=== PATIENT | male | born 1950 | race Caucasian/White ===

== ENCOUNTER 2018-01-09 11:19 | Outpatient (CLI) | payer BC, SELFPAY ==
[2018-01-09 15:57] LABS: Hemoglobin A1C 7.6 % (4.5-6.2)
== END 2018-01-09 11:39 ==
PROVIDERS: PCP Internal Medicine; Visit Provider Internal Medicine
DX: E11.65 Type 2 diabetes mellitus with hyperglycemia (principal)
CPT/HCPCS: 36415; 83036

== ENCOUNTER 2018-03-17 11:07 | Outpatient (CLI) | payer BC, SELFPAY ==
[2018-03-17 13:44] LABS: ESR 10 MM/HR (1-20)
[2018-03-17 13:46] LABS: Hemoglobin A1C 6.8 % (4.5-6.2)
[2018-03-17 15:45] LABS: Abs Immature Grans 0.02 k/cumm (0.0-0.09); Absolute Basophil Count 0.11 k/cumm (0.0-0.2); Absolute Eosinophil Count 0.46 k/cumm (0.0-0.7); Absolute Lymphocyte Count 2.77 k/cumm (1.2-3.4); Absolute Monocyte Count 0.98 k/cumm (0.11-0.7); Absolute Neutrophil Count 4.88 k/cumm (1.2-6.7); Basophils % 1.2; HCT 49.2 % (40.0-50.0); HGB 17.2 g/dL (13.5-17.5); Immature Grans % 0.2; Mean Corpuscular Hemoglobin 32.1 pg (27.0-33.0); Mean Corpuscular Volume 91.8 fL (80-95); Mean Platelet Volume 11.5 fL (8.0-11.0); Monocytes % 10.6; Platelet Count 229 x1000/uL (130-400); RBC 5.36 m/cumm (4.50-6.00); RBC Distribution Width 12.5 % (11.8-14.1); White Blood Cell Count 9.22 k/cumm (4.4-10.8)
== END 2018-03-17 11:27 ==
PROVIDERS: PCP Internal Medicine; Visit Provider Internal Medicine
DX: D72.829 Elevated white blood cell count, unspecified (principal); E11.9 Type 2 diabetes mellitus without complications; I10 Essential (primary) hypertension
CPT/HCPCS: 36415; 85027; 85652; 83036; 85025

== ENCOUNTER 2018-09-16 02:02 | Outpatient (CLI) | payer BC, SELFPAY ==
[2018-09-17 12:07] LABS: PSA, Screening 0.2 ng/ml (0-4.5)
== END 2018-09-16 02:22 ==
PROVIDERS: PCP Internal Medicine; Visit Provider Internal Medicine
DX: E11.9 Type 2 diabetes mellitus without complications (principal); Z12.5 Encounter for screening for malignant neoplasm of prostate
CPT/HCPCS: 36415; 84153; 83036

== ENCOUNTER 2018-12-24 07:22 | Outpatient (CLI) | payer BC, SELFPAY ==
[2018-12-24 10:53] LABS: Hemoglobin A1C 7.8 % (4.5-6.2)
== END 2018-12-24 07:42 ==
PROVIDERS: PCP Internal Medicine; Visit Provider Internal Medicine
DX: E11.9 Type 2 diabetes mellitus without complications (principal)
CPT/HCPCS: 36415; 83036

== ENCOUNTER 2019-10-01 22:27 | Outpatient (REF) | payer OTHER, SELFPAY ==
[2019-10-01 21:12] LABS: Hemoglobin A1C 9.1 % (3.8-5.6)
[2019-10-01 21:20] LABS: CREATININE 1.34 mg/dL (0.70-1.30); Estimated GFR 53.01 (mL/min/1.73m2); Potassium 4.5 mmol/L (3.5-5.1)
== END 2019-10-01 22:47 ==
LOC: LBN 22:27
PROVIDERS: PCP Nurse Practitioner; Visit Provider Nurse Practitioner
DX: I10 Essential (primary) hypertension (principal)
CPT/HCPCS: 82565; 83036; 84132

== ENCOUNTER 2019-12-11 07:44 | Day surgery (SDC) | payer OTHER, SELFPAY ==
[2019-12-11 08:04] VITALS: BP 139/96; PULSE 95; RESP 16; TEMP 36.5; O2SAT 96
[2019-12-11] MEDS: Lactated Ringers 1,000 ML 80 ML IV (08:31)
--- NOTE | 2019-12-11 08:36 | W.PM.DSUDISC ---
Discharge Plan Disposition Patient Disposition: HOME Condition: Good Discharge Details Reason For Visit: Colonoscopy Attending Provider: Mallika Hong Primary Care Provider: Halina Rivera Home Meds and New Rx's Prescriptions: Continued aspirin 81 mg tablet,delayed release (DR/EC) 81 mg PO DAILY RF: 0 Excedrin Extra Strength 1 EACH tablet 2 tab PO PRN RF: 0 glucosam-chond qb-sgzfcs-as ac 1 EACH capsule 2 ea PO DAILY RF: 0 CENTRUM SILVER TABLET 1 EACH tablet 1 ea PO DAILY RF: 0 (DME) lancets [OneTouch UltraSoft Lancets] 1 EACH misc 1 ea Miscellaneous DAILY Qty: 100 RF: 3 cyanocobalamin (vitamin B-12) [Vitamin B-12] 500 MCG tablet 500 mcg PO DAILY Qty: 90 RF: 0 metformin 1,000 mg tablet 1,000 mg PO BID Qty: 180 RF: 3 (DME) pen needle, diabetic [1st Tier Unifine Pentips] 32 gauge x 5/32 needle See Rx Instructions .ROUTE .MEDSUPPLY Qty: 90 RF: 4 (DME) OneTouch Ultra Blue Test Strip Strip See Rx Instructions .ROUTE .MEDSUPPLY Qty: 100 RF: 3 (DME) blood-glucose meter [OneTouch Ultra2 Meter] Kit See Rx Instructions .ROUTE .MEDSUPPLY Qty: 1 RF: 0 lisinopril 10 mg tablet 10 mg PO DAILY Qty: 90 RF: 3 hydrochlorothiazide 12.5 mg tablet 12.5 mg PO DAILY Qty: 90 RF: 3 Basaglar KwikPen U-100 Insulin 100 unit/mL (3 mL) insulin pen 40 unit SC DAILY RF: 0 Discharge Instructions Additional Instructions: Findings: Diverticulosis was present. Make sure to take in 30 grams of fiber daily. Follow up: Plan for colonoscopy in 7 years. Please call if you develop: fevers >101.5 Nausea or Vomiting Abdominal pain that is not transient DAY SURGERY UNIT POST COLONOSCOPY INSTRUCTIONS 1. Because there will be medication in your system for the next 24 hours, you may feel a little sleepy. Your coordination will be affected. Therefore: a. Do not drive or operate dangerous equipment for 24 hours. b. Do not drink alcohol beverages for 24 hours (not even beer). c. Plan to go home and rest for the day. 2. Generally there are no restrictions on your activity after a day or so has gone by, but you may feel a bit fatigued for a few days. 3 After you arrive home you may have a light meal and return to a normal diet as you can tolerate it without feeling sick to your stomach. 4. After surgery, you may feel pain or discomfort. This should be only transient, but if it persists please contact your doctor. 5. If there are any questions regarding the findings of your procedure, please feel free to contact your doctor. 6. If you are unable to contact your doctor with a problem, contact the hospital at [phone]. 7. Continue all your regular medications unless directed otherwise. I understand the above instructions and have no questions. Signature of Patient or Responsible Adult Escort Date/Time Name of Responsible Adult Escort Signature of Nurse Date/Time Activity:: Activity as Tolerated Diet:: As Tolerated Discharge Orders Discharge Orders: Discharge Order (Routine); Ordered 12/11/19 Ordered By: Mallika Hong DS: Diagnosis Discharge Diagnosis (1) Diverticulosis: Status: Acute
--- NOTE | 2019-12-11 08:37 | COLE_ITS ---
Date of service: 12/11/19 Time of Service: 09:24 Colonoscopy Report Date of procedure: 12/11/19 Pre-op diagnosis general: History of colon polyps Post-op diagnosis procedure note: other (Diverticulosis) Procedure: Colonoscopy Surgeon: Mallika Hong Anesthesia proc note operative: MAC Indications: This 69 year old man presents for colonoscopy. His last colonoscopy in 2012 showed a tubular adenoma Procedure Description: The patient was placed in the left Morel position. P ropofol was titrated to sedation. Digital rectal examination revealed no abnormalities. The scope was advanced to the cecum without difficulty. The ileocecal valve and appendiceal orifice were clearly identified. The prep was good. He was noted to have scattered diverticulosis throughout the colon including several pockets in the cecum. The scope was slowly withdrawn over the course of greater than 6 minutes with no other abnormalities seen in the ascending, transverse, descending, sigmoid colon or rectum including on retroflexed view. The patient tolerated the procedure well and was stable to recovery. Plan for routine colonoscopy in 7 years or sooner if symptoms indicate.
[2019-12-11 09:45] VITALS: BP 133/87; PULSE 87; RESP 16; TEMP 36.6; O2SAT 96
== END 2019-12-11 10:02 | disposition home or self-care (01) ==
PROVIDERS: PCP Nurse Practitioner; Visit Provider Surgery
PROC: 0DJD8ZZ Inspection of Lower Intestinal Tract, Via Natural or Artificial Opening Endoscopic (ICD-10-PCS; CPT 45378; principal; 2019-12-11 09:00)
DX: Z12.11 Encounter for screening for malignant neoplasm of colon (principal); Z86.010 Personal history of colon polyps; E11.9 Type 2 diabetes mellitus without complications; I10 Essential (primary) hypertension; E66.9 Obesity, unspecified; K57.30 Diverticulosis of large intestine without perforation or abscess without bleeding
CPT/HCPCS: 45378

== ENCOUNTER 2020-01-29 01:41 | Outpatient (CLI) | payer OTHER, SELFPAY ==
[2020-01-29 12:46] LABS: CREATININE 1.22 mg/dL (0.70-1.30); Estimated GFR 59.07 (mL/min/1.73m2); Potassium 5.2 mmol/L (3.5-5.1)
[2020-01-29 12:48] LABS: Hemoglobin A1C 7.7 % (<5.7)
== END 2020-01-29 02:01 ==
PROVIDERS: PCP Nurse Practitioner; Visit Provider Nurse Practitioner
DX: I10 Essential (primary) hypertension (principal); E11.65 Type 2 diabetes mellitus with hyperglycemia
CPT/HCPCS: 36415; 82565; 83036; 84132

== ENCOUNTER 2020-06-13 03:35 | Outpatient (CLI) | payer OTHER, SELFPAY ==
[2020-06-13 12:57] LABS: Hemoglobin A1C 7.7 % (<5.7)
== END 2020-06-13 03:36 | disposition home or self-care (01) ==
LOC: LOS 03:35
PROVIDERS: PCP Nurse Practitioner; Visit Provider Nurse Practitioner
DX: E11.65 Type 2 diabetes mellitus with hyperglycemia (principal)
CPT/HCPCS: 36415; 83036

== ENCOUNTER 2020-10-10 14:11 | Outpatient (CLI) | payer OTHER, SELFPAY ==
[2020-10-10 13:03] LABS: CREATININE 1.2 mg/dL (0.70-1.30); Calculated LDL 106 mg/dL (<100); Cholesterol 174 mg/dL (<200); HDL Cholesterol 55 mg/dL (40-60); Triglyceride 65 mg/dL (<150)
[2020-10-10 13:06] LABS: Hemoglobin A1C 8.1 % (<5.7)
[2020-10-10 22:19] LABS: PSA, Screening 0.2 ng/mL (0.0-4.5)
== END 2020-10-10 14:12 | disposition home or self-care (01) ==
LOC: LOS 14:12
PROVIDERS: PCP Nurse Practitioner; Visit Provider Nurse Practitioner
DX: I10 Essential (primary) hypertension (principal); E11.65 Type 2 diabetes mellitus with hyperglycemia; Z13.220 Encounter for screening for lipoid disorders; Z12.5 Encounter for screening for malignant neoplasm of prostate
CPT/HCPCS: 36415; 80061; 84153; 82565; 83036

== ENCOUNTER 2021-01-23 02:30 | Outpatient (CLI) | payer OTHER, SELFPAY ==
--- NOTE | 2021-01-23 14:00 | NS.NUTBLAN_ITS ---
Sai was referred to Medical Nutrition Therapy for Diabetes Self Management Education and weight management. He was accompanied by his . 255 lbs, 69 inches BMI 38. PMH: Dm2, HTN, obesity. Most recent A1C 7.5% (01/17/21) indicating good glycemic control. Dm meds: 1000 mg metformin BID, glargine 18 units AM, 100 units PM. Has gained 33 lbs in last 2 years since starting glargine. Lipids well controlled (10/10/20). Sees eye doc and podiatry. Walks 2 miles a couple times a week with . Typical meal plan includes toast and PB in AM, no lunch and big dinner. Snacks include corn chips, cookies, pretzels. Goal weight: 220 lbs. Check blood sugars twice daily- often having readings > 180 mg/dl in AM. Session today focused on how to best to follow lower carb diet with emphasis on complex carbs, lean protein and healthy fats. Provided meal plans and contact information. Sai will need to reduce glargine at night if following lower carb meal plan. Recommend 50 units at HS if blood sugars <100 mg/dl before dinner. Encouraged Sai to check blood sugars QID while decreasing carbohydrate intake and to reduce insulin to maintain ideal range of 70-180 mg/dl during day. High amounts of glargine related to weight gain. Recommend changing to Toujeo/Tresiba. Also, recommend consider using Jardiance (SGLT2i) and/or Trucility in order to reduce basal insulin to assist in desired weight loss. Plan: follow up 02/20/21 at 1 pm. Goal weight loss 10lbs/month to goal weight of 220 lbs.
== END 2021-01-23 02:31 | disposition home or self-care (01) ==
LOC: DS 02:30
PROVIDERS: PCP Nurse Practitioner; Visit Provider Dietitian, Registered
DX: E11.9 Type 2 diabetes mellitus without complications (principal); I10 Essential (primary) hypertension; E66.8 Other obesity; Z79.4 Long term (current) use of insulin; Z79.84 Long term (current) use of oral hypoglycemic drugs; Z68.38 Body mass index [BMI] 38.0-38.9, adult; Z71.3 Dietary counseling and surveillance
CPT/HCPCS: 97802

== ENCOUNTER → 2021-01-24 01:18 | Outpatient (CLI) | payer OTHER, SELFPAY ==
--- NOTE | 2021-01-24 06:30 | DI.RAD_ITS ---
Exam(s) XR KNEE RT 3V AP,LAT,KRISTI EXAM: XR KNEE RT 3V AP,LAT,KRISTI CLINICAL HISTORY: knee pain, M25.561. TECHNIQUE: 2D digital imaging was performed. COMPARISON: No exams were available for comparison FINDINGS: There is no evidence of fracture nor prominent joint effusion. However, there are significant osteoa rthritic degenerative changes with [id number] narrowing of the medial compartment and moderate dege nerative changes in the patellofemoral compartment. Milder degenerative changes in the lateral radha rtment. No osseous lesions. Vascular calcification is noted. IMPRESSION: Osteoarthritic degenerative changes, most prominent in the medial compartment. DATA REPOSITORY: RADIATION DOSE DELIVERED:
== END ==
PROVIDERS: PCP Nurse Practitioner; Visit Provider Nurse Practitioner
DX: M25.561 Pain in right knee (principal); M17.11 Unilateral primary osteoarthritis, right knee
CPT/HCPCS: 73562

== ENCOUNTER 2021-02-20 13:35 | Outpatient (CLI) | payer OTHER, SELFPAY ==
--- NOTE | 2021-02-20 13:00 | NS.NUTBLAN_ITS ---
Rubén returns for diabetes self management education (MNT). Wt: 255 lbs, no change in weight. DM meds have been changed to 20 units glargine AM, 60 units PM, 1000 mg metformin BID. Diet recall - breakfast sandwich, big dinner - home cooked Exercise- continues to walk 1-2 miles daily Session today focused on placing a Libre2 continuous glucose monitor with alarms for more feedback on meal selection as teaching tool for Rubén. Suspect CGM trial will provide Rubén with concrete data on how his meals affect his blood sugars. Rubén is interested in losing weight and reducing insulin administration. Current insulin intake is making it difficult for him to lose weight. Recommend lower dose of concentrated insulin such as Toujeo. Also, recommend Januvia or Jardiance, along with metformin for weight loss and healthy heart benefit. Follow up planned for 03/06/21 at 1 pm for CGM down load. Will fax results to PCP for evaluation.
== END 2021-02-20 13:36 | disposition home or self-care (01) ==
PROVIDERS: PCP Nurse Practitioner; Visit Provider Dietitian, Registered
DX: E11.9 Type 2 diabetes mellitus without complications (principal); Z79.4 Long term (current) use of insulin; Z71.3 Dietary counseling and surveillance
CPT/HCPCS: 97803

== ENCOUNTER 2021-03-06 01:56 | Outpatient (CLI) | payer OTHER, SELFPAY ==
--- NOTE | 2021-03-06 13:00 | NS.NUTBLAN_ITS ---
Rubén returns for Diabetes Self Management Education and data down load after wearing a Cesar 2 Continuous Glucose Monitor. Wt: 246 lbs (down 9 lbs in 30 days) DM meds: 20 u glargine AM, 40 u glargine PM, 1000 mg metformin BID, 10 mg Jardiance x 30 days, then increased to 25 mg/dl. Ambulatory Glucose Profile: 02/21/21-03/06/21 Average Blood Sugars: 121 mg/dl Glucose Variability: 23% (goal <35%) Time In Range (70-180 mg/dl): 96% (goal > 70%) High BS (180-250 mg/dl): 4% (goal <25%) No BS > 250 mg/dl No hypoglycemia Rubén has had excellent glycemic management in current Dm meds and diet/lifestyle changes. Weight loss encouraging. May consider reducing PM glargine dose to 30 units and assess glycemic response. . Session today focused on meal time planning and role for exercise, avoiding hypo/hyper glycemia. Recommend continued use of CGM as provides daily feed back on meal choices and essential while titrating insulin doses. Will need script for Cesar 2 reader and cesar 2 sensors- as with commercial insurance, will be available at pharmacy. Follow up appt. 04/03/21 at 1 pm.
== END 2021-03-06 01:57 | disposition home or self-care (01) ==
LOC: DS 01:57
PROVIDERS: PCP Nurse Practitioner; Visit Provider Dietitian, Registered
DX: E11.9 Type 2 diabetes mellitus without complications (principal); Z71.3 Dietary counseling and surveillance
CPT/HCPCS: 97803

== ENCOUNTER 2021-04-03 13:33 | Outpatient (CLI) | payer OTHER, SELFPAY ==
--- NOTE | 2021-04-03 13:00 | NS.NUTBLAN_ITS ---
Sai returns for Medical Nutrition Therapy for diabetes self management education and Cesar 2 CGM data down load. Wt: 237 lbs, down 23 lbs in last 3 months, BMI 35 Dm meds: 20 lantus AM and 30 lantus PM, 1000 mg metformin BID, 25 mg Jardiance qd Diet Recall: ritz crackers with ham, breakfast sandwich, pot roast, 1/2 cup potatoes, veggies Exercise: 2 mile walk- 3 times last week Ambulatory Glucose Profile: Dates: 03/21/21-04/03/21 Actual Goal Average Blood Sugar: 126 mg/dl 80-120 mg/dl Glucose Management Indicato: 6.3% < 7% Glucose Variability: 21.4% < 36% Time In Range (70-180 mg/dl) 96% >70% Below 70 mg/dl: 1% < 4% Below 54 mg/dl : 0% < 1% Above 180 mg/dl: 3% < 25% Above 250 mg/dl: 0% < 5% Excellent glycemic control with significant reduction in long acting insulin and significant weight loss. Sai's goal weight is 225-230 lbs. Reports making small changes in his diet in response to alarms on CGM, no hypoglycemia reported. Asked Sai to talk to his PCP about lowering long acting insulin some more to aid in continued weight loss. Session today focused on Sai's accomplishments and improved health. Sai reports feeling very well and very happy with results after using the CGM. Has prescription for replacement sensors ( 2 per month). No follow up scheduled at this time. Will reach out in future prn. .
== END 2021-04-03 13:34 | disposition home or self-care (01) ==
LOC: DS 13:33
PROVIDERS: PCP Nurse Practitioner; Visit Provider Dietitian, Registered
DX: E11.9 Type 2 diabetes mellitus without complications (principal); Z79.4 Long term (current) use of insulin; Z71.3 Dietary counseling and surveillance
CPT/HCPCS: 97803

== ENCOUNTER 2021-10-26 02:59 | Outpatient (CLI) | payer MEDICARE, OTHER, SELFPAY ==
[2021-10-26 12:48] LABS: Anion Gap 10.4 mmol/L (3-11); BUN 24 mg/dL (7-18); CO2 24.6 mmol/L (21.0-32.0); CREATININE 1.3 mg/dL (0.70-1.30); Calcium 9.5 mg/dL (8.5-10.1); Calculated LDL 76 mg/dL (<100); Chloride 104 mmol/L (98-107); Cholesterol 151 mg/dL (<200); Estimated GFR 54.57 (mL/min/1.73m2); Glucose 147 mg/dL (74-106); HDL Cholesterol 61 mg/dL (40-60); Potassium 4.7 mmol/L (3.5-5.1); Sodium 139 mmol/L (136-145); Triglyceride 73 mg/dL (<150)
== END 2021-10-26 03:00 | disposition home or self-care (01) ==
LOC: LOS 03:01
PROVIDERS: PCP Nurse Practitioner; Visit Provider Nurse Practitioner
DX: E11.65 Type 2 diabetes mellitus with hyperglycemia (principal); I10 Essential (primary) hypertension
CPT/HCPCS: 36415; 80048; 80061

== ENCOUNTER 2022-06-11 17:19 | Outpatient (CLI) | payer MEDICARE, SELFPAY ==
--- NOTE | 2022-06-11 17:15 | DI.RAD_ITS ---
Exam(s) XR ABDOMEN FLAT UPRIGHT EXAM: XR ABDOMEN FLAT UPRIGHT CLINICAL HISTORY: constipation, for 2 weeks. TECHNIQUE: 2D digital imaging was performed. COMPARISON: CT RENAL COLIC WO CONTRAST from 06/14/2017 FINDINGS: Two views: No evidence of obvious bowel obstruction or free air. The stomach is fluid-filled. Small left-sided calcifications seen in left kidney. No obvious radiopaque calculi seen over the right kidney. No o bvious radiopaque calculi seen along the course of the ureters. Multilevel degenerative changes in t he lumbar spine noted. IMPRESSION: Nephrocalcinosis. I note that this patient had a prior CT scan June 2017 which revealed an obstruct ing calculus in the right ureter. At that time CT scan also revealed calculi in a somewhat atrophic left kidney. DATA REPOSITORY: RADIATION DOSE DELIVERED:
--- NOTE | 2022-06-11 18:04 | DI.VRAD_ITS ---
PROCEDURE INFORMATION: Exam: XR Abdomen Exam date and time: 06/11/2022 5:39 PM Age: 71 years old Clinical indication: Other: Constipation, for 2 weeks TECHNIQUE: Imaging protocol: Radiologic exam of the abdomen. Views: 2 Views. Upright and supine views. COMPARISON: CT RENAL COLIC WO CONTRAST 06/14/2017 2:31 PM FINDINGS: Lungs: The visualized lung bases are clear. Heart/Mediastinum: Heart size normal. Gastrointestinal tract: There is no evidence of constipation. Stool volume is very small and there is a relative absence of bowel gas throughout the small bowel with only small amounts of bowel gas demonstrated in the distribution of the cecum, with largely contracted colon otherwise. The stomach shadow is fairly prominent and fluid-filled with fluid level in the fundus. The pattern raises concern for possible gastric outlet obstruction. Recommend CT with oral contrast or fluoroscopic contrast swallow. No evidence of pneumatosis or portal gas. Intraperitoneal space: No free air is evident. Organs: No gross soft tissue masses. Large right renal shadow consistent with compensatory enlargement of the right kidney secondary to left renal cortical atrophy as noted on prior CT 06/14/2017. Bones/joints: No acute osseous abnormalities. Moderate lumbar spondylosis with slight rightward convexity mid lumbar scoliotic curvature. Other findings: No pathological calcifications. IMPRESSION: 1. No evidence of constipation. 2. The stomach is moderately distended with fluid content with relative absence of bowel contents in the small and large bowel, concerning for possible gastric outlet obstruction. Recommend CT with oral contrast or fluoroscopic contrast swallow for further assessment. 3. Compensatory enlargement of the right kidney due to left renal cortical atrophy. 4. These findings initiated a critical results reporting process. An addendum will be issued at the time of clinician notification. Dictated and Authenticated by: Nixon Cohn MD. Ordering:ES Rich MD
--- NOTE | 2022-06-11 18:28 | DI.VRAD_ITS ---
Addendum created by Nixon Cohn MD on 06/11/2022 6:28:17 PM EST: Addendum: THIS REPORT CONTAINS FINDINGS THAT MAY BE CRITICAL TO PATIENT CARE. Telephone discussion between operations clerical support Vashti Webb and Layla Henry at 6:28 PM EST on 06/11/2022 confirmed that they had read the report with no further questions, and declined conference call. The findings were acknowledged and understood. Initial report created on 06/11/2022 6:04:03 PM EST: PROCEDURE INFORMATION: Exam: XR Abdomen Exam date and time: 06/11/2022 5:39 PM Age: 71 years old Clinical indication: Other: Constipation, for 2 weeks TECHNIQUE: Imaging protocol: Radiologic exam of the abdomen. Views: 2 Views. Upright and supine views. COMPARISON: CT RENAL COLIC WO CONTRAST 06/14/2017 2:31 PM FINDINGS: Lungs: The visualized lung bases are clear. Heart/Mediastinum: Heart size normal. Gastrointestinal tract: There is no evidence of constipation. Stool volume is very small and there is a relative absence of bowel gas throughout the small bowel with only small amounts of bowel gas demonstrated in the distribution of the cecum, with largely contracted colon otherwise. The stomach shadow is fairly prominent and fluid-filled with fluid level in the fundus. The pattern raises concern for possible gastric outlet obstruction. Recommend CT with oral contrast or fluoroscopic contrast swallow. No evidence of pneumatosis or portal gas. Intraperitoneal space: No free air is evident. Organs: No gross soft tissue masses. Large right renal shadow consistent with compensatory enlargement of the right kidney secondary to left renal cortical atrophy as noted on prior CT 06/14/2017. Bones/joints: No acute osseous abnormalities. Moderate lumbar spondylosis with slight rightward convexity mid lumbar scoliotic curvature. Other findings: No pathological calcifications. IMPRESSION: 1. No evidence of constipation. 2. The stomach is moderately distended with fluid content with relative absence of bowel contents in the small and large bowel, concerning for possible gastric outlet obstruction. Recommend CT with oral contrast or fluoroscopic contrast swallow for further assessment. 3. Compensatory enlargement of the right kidney due to left renal cortical atrophy. 4. These findings initiated a critical results reporting process. An addendum will be issued at the time of clinician notification. Dictated and Authenticated by: Nixon Cohn MD. Ordering:ES Rich MD
== END 2022-06-11 17:39 ==
PROVIDERS: PCP Nurse Practitioner Family; Visit Provider Nurse Practitioner Family
DX: K59.00 Constipation, unspecified (principal); R10.9 Unspecified abdominal pain; N20.0 Calculus of kidney; M47.816 Spondylosis without myelopathy or radiculopathy, lumbar region
CPT/HCPCS: 74019

== ENCOUNTER 2022-06-13 01:13 | Outpatient (CLI) | payer MEDICARE, SELFPAY ==
--- NOTE | 2022-06-13 07:45 | DI.CT_ITS ---
Exam(s) CT ABDOMEN PELVIS W EXAM: CT ABDOMEN PELVIS W CLINICAL HISTORY: abnormal x-ray,ABD PAIN, CONSTIPATION,K59.00,R10.9 TECHNIQUE: Imaging Protocol: Axial computed tomography images with coronal and sagittal reformatted images were created and reviewed CONTRAST MATERIAL: Intravenous: Omnipaque 350 Contrast volume:100 mL Oral: Yes COMPARISON: CT RENAL COLIC WO CONTRAST from 04/26/2011 CT RENAL COLIC WO CONTRAST from 11/11/2013 CT RENAL COLIC WO CONTRAST from 06/14/2017 FINDINGS: ABDOMEN: Lung Bases: Coronary artery calcifications are present. Liver: There is fatty infiltration of the liver. No measurable mass. Portal, Superior Mesenteric, and Splenic Veins: Unremarkable. Gallbladder and Biliary Tract: No radiodense calculus or dilation. Pancreas: Normal density, no abnormal calcifications or inflammatory process. Spleen: Normal. Adrenals: No masses seen. Kidneys: There is atrophy of the left kidney. There are calcifications seen in the left renal pelvis consistent with nonobstructing calculi. There is no left hydronephrosis. There are no calculi seen in the right kidney. There is prominence of the right renal pelvis with a normal ureter. There is normal enhancement of the right kidney. Reviewing prior examinations there appears to be prominence o f the renal pelvis dating back to 2011. This may represent a prominent extrarenal pelvis or UPJ obstr uction. No masses seen. There is no ureteral stone on the right. Abdominal Aorta: Abdominal portion non-dilated. Atherosclerosis. Bowel: There is diverticulosis of the colon but no evidence of acute diverticulitis. There is no evid ence of bowel obstruction or bowel wall thickening. Appendix is unremarkable. Peritoneal Cavity: No ascites, collection or mesenteric inflammatory response. No free air. Lymph Nodes: Within normal limits. Bones: Within normal limits for the patient's age. Soft Tissues: There is a fat containing left inguinal hernia. PELVIS: Bladder: Symmetric distention, no gross wall thickening. Reproductive Organs: Unremarkable as visualized. Lymph Nodes: Within normal limits. Bones: Within normal limits for the patient's age. IMPRESSION: 1. There is no evidence of right nephrolithiasis or ureterolithiasis. 2. Left renal atrophy and nephrolithiasis without hydronephrosis. 3. Prominence of the right pelvis with a normal ureter. This may represent a prominent extrarenal pel vis or UPJ obstruction. 4. Colonic diverticulosis, but no evidence of acute diverticulitis. RADIATION DOSE DELIVERED: 1,204.66mGy.cm Total DLP DATA REPOSITORY: All CT scans at this facility are submitted to the National Radiology Data Registry (NRDR) Dose Index Registry (DIR) with the [employer] ([employer]). RADIATION OPTIMIZATION: All CT scans at this facility use at least one of these dose optimization te chniques: automated exposure control; mA and/or kV adjustment per patient size (includes targeted exa ms where dose is matched to clinical indication); or iterative reconstruction.
[2022-06-13] MEDS: Barium Sulfate 2% W/V-Berry Smoothie 450 ML BTL 900 ML PO (12:54)
[2022-06-13 14:07] LABS: ALT 35 U/L (16-63); AST 24 U/L (15-37); Albumin 3.9 g/dL (3.4-5.0); Alkaline Phosphatase 73 U/L (46-116); Anion Gap 9.4 mmol/L (3-11); BUN 18 mg/dL (7-18); Bilirubin, Total 0.3 mg/dL (0.2-1.0); CO2 26.6 mmol/L (21.0-32.0); CREATININE 1.5 mg/dL (0.70-1.30); Calcium 10.3 mg/dL (8.5-10.1); Chloride 105 mmol/L (98-107); Estimated GFR 49.77 (mL/min/1.73m2); Glucose 124 mg/dL (74-106); Lipase 47 U/L (16-77); Potassium 4.6 mmol/L (3.5-5.1); Sodium 141 mmol/L (136-145); Total Protein 7.9 g/dL (6.4-8.2)
[2022-06-13] MEDS: Normal Saline - Diluent 50 ML VIAL IJ (15:13)
[2022-06-13] MEDS: Omnipaque 350 MG/ML 100 ML BTL IJ (15:13)
[2022-06-13] MEDS: Normal Saline Flush 10 ML SYR IVP (15:15)
[2022-06-13 15:36] LABS: Abs Immature Grans 0.04 10^3/uL (0.0-0.06); Absolute Eosinophil Count 0.36 10^3/uL (0.0-0.7); Absolute Lymphocyte Count 2.43 10^3/uL (1.2-3.4); Absolute Neutrophil Count 8.99 10^3/uL (1.2-6.7); Basophils % 0.9; Eosinophils % 2.8; HCT 46.8 % (40.0-50.0); HGB 14.9 g/dL (13.5-17.5); Immature Grans % 0.3; Lymphocytes % 18.8; MCH 30.5 pg (27.0-33.0); MCHC 31.8 % (32.0-36.0); MCV 96 fL (80-95); Monocytes % 7.7; Neutrophils % 69.5; Platelet Count 337 10^3/uL (130-400); RBC 4.88 10^6/uL (4.36-5.78); RDW 12.2 % (11.8-14.1); RDW-SD 43.2 fL; WBC 12.93 10^3/uL (4.4-10.8)
[2022-06-13 15:37] LABS: Absolute Basophil Count 0.12 10^3/uL (0.0-0.2)
== END 2022-06-13 01:33 ==
PROVIDERS: PCP Nurse Practitioner Family; Visit Provider Nurse Practitioner Family
DX: R10.9 Unspecified abdominal pain (principal); K59.00 Constipation, unspecified; K76.0 Fatty (change of) liver, not elsewhere classified; N20.0 Calculus of kidney; K57.30 Diverticulosis of large intestine without perforation or abscess without bleeding
CPT/HCPCS: 80053; 83690; 74177; 85025; J3490

== ENCOUNTER 2022-06-21 03:11 | Outpatient (CLI) | payer MEDICARE, SELFPAY ==
[2022-06-21 12:57] LABS: Abs Immature Grans 0.02 10^3/uL (0.0-0.06); Absolute Basophil Count 0.09 10^3/uL (0.0-0.2); Absolute Eosinophil Count 0.51 10^3/uL (0.0-0.7); Absolute Lymphocyte Count 2.47 10^3/uL (1.2-3.4); Absolute Monocyte Count 0.73 10^3/uL (0.1-0.8); Absolute Neutrophil Count 6.22 10^3/uL (1.2-6.7); Basophils % 0.9; Eosinophils % 5.1; HCT 40.4 % (40.0-50.0); HGB 13.7 g/dL (13.5-17.5); Immature Grans % 0.2; Lymphocytes % 24.6; MCH 32.8 pg (27.0-33.0); MCHC 33.9 % (32.0-36.0); MCV 97 fL (80-95); MPV 11.3 fL (8.0-11.0); Monocytes % 7.3; Neutrophils % 61.9; Platelet Count 270 10^3/uL (130-400); RBC 4.18 10^6/uL (4.36-5.78); RDW 12.2 % (11.8-14.1); RDW-SD 42.2 fL; WBC 10.04 10^3/uL (4.4-10.8)
[2022-06-21 13:13] LABS: ALT 24 U/L (16-63); AST 16 U/L (15-37); Albumin 3.4 g/dL (3.4-5.0); Alkaline Phosphatase 62 U/L (46-116); Anion Gap 11.5 mmol/L (3-11); BUN 23 mg/dL (7-18); Bilirubin, Total 0.2 mg/dL (0.2-1.0); CO2 25.5 mmol/L (21.0-32.0); CREATININE 1.5 mg/dL (0.70-1.30); Calcium 9.4 mg/dL (8.5-10.1); Chloride 105 mmol/L (98-107); Estimated GFR 49.77 (mL/min/1.73m2); Glucose 109 mg/dL (74-106); Potassium 4.3 mmol/L (3.5-5.1); Sodium 142 mmol/L (136-145); Total Protein 7.2 g/dL (6.4-8.2)
[2022-06-21 13:43] LABS: Bilirubin Negative (Negative); Blood Negative (Negative); Clarity Sl Cloudy (Clear); Glucose Negative (Negative); Ketones Negative (Negative); Leukocyte Esterase Small (Negative); Nitrite Negative (Negative); Specific Gravity 1.025 (1.005-1.025); Urobilinogen 0.2 mg/dL (Up to 0.2); pH 5.5 (5-8)
[2022-06-21 14:04] LABS: Bacteria Rare HPF (Negative); C & S Indicated? Yes; Casts Negative LPF (Negative); Crystals Negative HPF (Negative); Epithelial Cells Rare HPF (Negative); Mucus Trace (Negative); RBC 0-2 HPF (0-2); WBC 20-50 HPF (0-5)
== END 2022-06-21 03:12 | disposition home or self-care (01) ==
LOC: LOS 03:11
PROVIDERS: PCP Nurse Practitioner Family; Visit Provider Nurse Practitioner Family
DX: D72.829 Elevated white blood cell count, unspecified (principal); R11.10 Vomiting, unspecified; R10.9 Unspecified abdominal pain; N20.0 Calculus of kidney; R82.998 Other abnormal findings in urine
CPT/HCPCS: 36415; 80053; 81003; 81015; 85025; 87086

== ENCOUNTER 2022-07-31 21:29 | Emergency (ER) | payer MEDICARE, SELFPAY ==
[2022-07-31 21:30] VITALS: BP 139/83; PULSE 81; RESP 19; TEMP 36.9; O2SAT 97
--- OUTSIDE RECORDS SUMMARY | 2022-07-31 21:37 | XMS_ITS | Continuity of Care Document ---
Author Name Unknown Organization [facility] Address [address] [place] [address] Care Team Providers Care Speaker Mounter Name Role Phone KUNAL MEDINA Primary Care Physician [phone] Encounter [facility]BR [id number] Date(s): 07/10/22 - 07/10/22 [facility] [address] [place], [place] [address] Encounter Diagnosis Abdominal pain(Discharge Diagnosis) - 07/10/22 Vomiting(Discharge Diagnosis) - 07/10/22 Unintentional weight loss(Discharge Diagnosis) - 07/10/22 Anorexia(Discharge Diagnosis) - 07/10/22 Early satiety(Discharge Diagnosis) - 07/10/22 Discharge Disposition: Home or Self Care Attending Physician: Sophy Sow APRN Allergies, Adverse Reactions, Alerts Substance Reaction Severity Status amoxicillin Unknown Active morphine Unknown Active Latex Unknown Active Clavulanic acid Unknown Active Assessment and Plan Future Appointments Future Scheduled Tests Radiology* NM Gastric Emptying Study 07/25/22 Functional Status 07/10/22 Other exposure to Infectious Disease Non e Medications amLODIPine 5 mg oral tablet 5 mg = 1 tab, Oral, Daily, # 30 tab, 0 Refill(s) Start Date: 07/08/22 Status: Ordered aspirin 81 mg oral capsule 81 mg = 1 cap, Oral, Daily, do not exceed 48 capsules in 24 hours, # 30 cap, 0 Refill(s) Start Date: 07/08/22 Status: Ordered Basaglar KwikPen 100 units/mL subcutaneous solution 0.2 unit/kg =, Subcutaneous, every night at bedtime, # 10 mL, 0 Refill(s) Start Date: 07/08/22 Status: Ordered Centrum Silver oral tablet 1 tab, Oral, Daily, # 30 tab, 0 Refill(s) Start Date: 07/08/22 Status: Ordered cyanocobalamin 500 mcg oral tablet 500 mcg = 1 tab, Oral, Daily, # 30 tab, 0 Refill(s) Start Date: 07/08/22 Status: Ordered empagliflozin 10 mg oral tablet 10 mg = 1 tab, Oral, every morning, # 30 tab, 0 Refill(s) Start Date: 07/08/22 Status: Ordered Excedrin Extra Strength oral tablet 2 tab, Oral, every 6 hr, PRN as needed for headache, # 50 tab, 0 Refill(s) Start Date: 07/08/22 Status: Ordered glucosamine/chondroitin/methylsulfonylmethane 375 mg-300 mg-237.5 mg oral capsule 2 cap, Oral, BID, # 120 cap, 0 Refill(s) Start Date: 07/08/22 Status: Ordered hydroCHLOROthiazide 12.5 mg oral tablet 12.5 mg = 1 tab, Oral, Daily, # 30 tab, 0 Refill(s) Start Date: 07/08/22 Status: Ordered insulin pen needles 32G 5 mm Supply, See instructions, # 1 EA, 0 Refill(s) Start Date: 07/08/22 Status: Ordered lisinopril 40 mg oral tablet 40 mg = 1 tab, Oral, Daily, # 30 tab, 0 Refill(s) Start Date: 07/08/22 Status: Ordered metFORMIN 1000 mg oral tablet 1,000 mg = 1 tab, Oral, BID, # 60 tab, 0 Refill(s) Start Date: 07/08/22 Status: Ordered One Touch Ultra Test Strips Supply, See instructions, # 1 EA, 0 Refill(s) Start Date: 07/08/22 Status: Ordered Problem List Condition Confirmation Course Effective Dates Status H ealth Status Informant Abdominal pain Confirmed Active Constipation Confirmed Active Diastasis Confirmed Active Diverticulosis of colon Confirmed Active DM - Diabetes mellitus 1 Confirmed Active Early satiety Confirmed Active Hydronephrosis Confirmed Active Hypertension Confirmed Active Kidney stone Confirmed Active Anorexia Confirmed Active OA - Osteoarthritis of knee Confirmed Active Obesity Confirmed Active Polyp of colon Confirmed Active Renal atrophy Confirmed Active Tubular adenoma of colon Confirmed Active Unintentional weight loss Confirmed Active Varicose vein Confirmed Active Vomiting Confirmed Active 1type 2 Procedures Procedure Date Related Diagnosis Body Site Status Colonoscopy 12/10/19 Completed Carpal tunnel release Com pleted Nasal septoplasty Complet ed Primary repair of inguinal hernia Completed Rotator cuff repair Compl eted Surgery 1 Completed Uvulopalatopharyngoplasty Completed 1shoulder Vital Signs Most recent to oldest [Reference Range]: 1 Temperature Temporal Artery [36-38 Deg C ] 36.8 Deg C (07/10/22 8:22 AM) Peripheral Pulse Rate [60-100 bpm] 87 bp m (07/10/22 8:22 AM) Blood Pressure [90-140/60-90 mmHg] 124/7 8mmHg (07/10/22 8:22 AM) Weight 102.8 kg (07/10/22 8:22 AM) Weight Measured (lbs) 226.635 lb (07/10/22 8:22 AM) [place] Body Weight Calculated 73 kg (07/10/22 8:22 AM) Height 177.80 cm (07/10/22 8:22 AM) Height/Length Measured (inches) 70 inch (07/10/22 8:22 AM) BSA Measured 2.25 m2 (07/10/22 8:22 AM) Body Mass Index 32.52 kg/m2 (07/10/22 8:22 AM) Social History Social History Type Response Tobacco Never tobacco user T obacco Use:. Sex Physician Outpatient Note * Sophy Sow, GAUGE OPERATOR: PERFORM Event Display: Office Clinic Note Physician Authored Date: [id number] DEVIN TYLER :1950 Age:71 years Sex:Male Visit Date:07/10/2022 Primary Care Physician: Unavailable, Physician Chief Complaint Abdominal pain, vomiting and constipation. History of Present Illness Patient is a 71-year-old??male here today at the request??of Layla Golden for abdominal pain, vomiting and constipation. ??This is an initial consult.?? He states just over a month ago he began??with centralized abdominal pain??and vomiting. ??He vomits??once every 2 to 3 days.?? Vomiting??does relieve his pain. ??He is lost 10 pounds in the past month. ??His appetite is diminished??and he??notes early satiety.?? Denies any nausea,??constipation, diarrhea, melena or hematochezia.?? Denies pyrosis or dyspepsia. ??Denies any dysphagia or globus sensation. ?? Denies any recent changes in medications. ?? He has not had any episodes similar to this in the past. ?? He does have diabetes??he reports his A1c usually runs??in the low sevens.?? Yesterday was 7.1. ?? On 06/11/2022 x-ray of the abdomen showed moderate distention,??no bowel contents in the small and large??bowel. ??Question if there is a gastric outlet obstruction. ?? CT scan??at the abdomen with??oral contrast showed fatty liver and diverticulosis. ?? 07/11/2019??colonoscopy at [facility] showed scattered diverticulosis including the cecum. ??He was advised to repeat in 7 years. ?? Colonoscopy in 2013 showed tubular adenoma. ?? Denies alcohol??or marijuana use. ?? Denies a family history of gastrointestinal cancers. Review of Systems General: Denies malaise or fatigue. HEENT: Denies globus sensation or dysphagia. Respiratory: Denies shortness of breath, cough, or wheeze. Cardiovascular: Denies chest pain, palpitations, lightheadedness, dizziness, syncope or peripheral edema. ?? Abdomen:??Complains of centralized abdominal pain, vomiting,??unintentional weight loss, decreased appetite and early satiety.?? Denies nausea, constipation, diarrhea,??melena or hematochezia. ??Denies any pyrosis or dyspepsia Skin: Denies rashes or lesions. Neurological: Denies any problems with gait or balance. Physical Exam Vitals & Measurements T:??36.8?C ??(Temporal Artery)?? HR:??87??(Peripheral)?? BP:??124/78?? SpO2:??97%?? HT:??177.80??cm?? WT:??102.8??kg?? BMI:??32.52?? BSA:??2.25?? General: Well-nourished well-developed??male??in no acute distress. HEENT: Head is normocephalic, trachea midline, and no cervical lymphadenopathy. Respiratory: Respirations are even and unlabored. ??Lungs are clear to auscultation. Cardiovascular: Regular rate and rhythm with S1 and S2. Abdomen: Positive bowel sounds x4 quadrants, no masses, no guarding, no tenderness. ??No hepatosplenomegaly. ??Abdomen is soft. Skin: Warm, dry, and pink. Neurological: Alert and oriented x3, speech is clear and gait is steady. Psychological: Pleasant, calm and cooperative. Assessment/Plan 1.??Abdominal pain??R10.9 Centralized abdominal??pain??relieved with vomiting and weightloss.?? CT scan of the abdomen??and pelvis with oral contrast??was unremarkable.?? No obstruction noted.?? Will obtain gastric emptying scan??to assess for gastroparesis in a patient with diabetes??as well as EGD to assess for mucosal injury, inflammation,??H. pylori infection??or celiac disease.?? Will see patient 2 weeks following procedure to discuss findings and make further recommendations. Ordered: Follow-up Appointment Request [facility], *Est. 07/24/22 +/- 2 days, Future Order, after EGD, In Approximately, [facility] [place] G[place]ying [place], 07/10/22, Routine, Reason: early satiety, Transport Mode: Ambulatory, Abdominal pain Vomiting Unintentional weight loss Anorexia Early satiety, ABN Status: Not Required Surgical Procedure Booking Request [facility], 07/10/22 8:48:00 EDT, 09/05/22 10:00:00 EDT, v/early satiety, weight l, Abdominal pain Vomiting Unintentional weight loss Anorexia Early satiety, Outpatient, EGD, Primary Procedure, 15, Diabetic, [facility], [address], [place], [id number], [id number], 4... ?? 2.??Vomiting??R11.10 As above. Ordered: Follow-up Appointment Request [facility], *Est. 07/24/22 +/- 2 days, Future Order, after EGD, In Approximately, [facility] Gastric Emptying [place], 07/10/22, Routine, Reason: early satiety, Transport Mode: Ambulatory, Abdominal pain Vomiting Unintentional weight loss Anorexia Early satiety, ABN Status: Not Required Surgical Procedure Booking Request [facility], 07/10/22 8:48:00 EDT, 09/05/22 10:00:00 EDT, v/early satiety, weight l, Abdominal pain Vomiting Unintentional weight loss Anorexia Early satiety, Outpatient, EGD, Primary Procedure, 15, Diabetic, [facility], [address], [place], [id number], [id number], 4... ?? 3.??Unintentional weight loss??R63.4 As above. 2020 colonoscopy was unremarkable. Ordered: Follow-up Appointment Request [email or web address], *Est. 07/24/22 +/- 2 days, Future Order, after EGD, In Approximately, [facility] Gastric Emptying [facility], 07/10/22, Routine, Reason: early satiety, Transport Mode: Ambulatory, Abdominal pain Vomiting Unintentional weight loss Anorexia Early satiety, ABN Status: Not Required Surgical Procedure Booking Request [facility], 07/10/22 8:48:00 EDT, 09/05/22 10:00:00 EDT, v/early satiety, weight l, Abdominal pain Vomiting Unintentional weight loss Anorexia Early satiety, Outpatient, EGD, Primary Procedure, 15, Diabetic, [facility], [address], [place], [id number], [id number], 4... ?? 4.??Anorexia??R63.0 As above. Ordered: Follow-up Appointment Request [facility], *Est. 07/24/22 +/- 2 days, Future Order, after EGD, In Approximately, [facility] Gastric Emptying [facility], 07/10/22, Routine, Reason: early satiety, Transport Mode: Ambulatory, Abdominal pain Vomiting Unintentional weight loss Anorexia Early satiety, ABN Status: Not Required Surgical Procedure Booking Request [facility], 07/10/22 8:48:00 EDT, 09/05/22 10:00:00 EDT, v/early satiety, weight l, Abdominal pain Vomiting Unintentional weight loss Anorexia Early satiety, Outpatient, EGD, Primary Procedure, 15, Diabetic, [facility], [address], [place], [id number], [id number], 4... ?? 5.??Early satiety??R68.81 As above. Ordered: Follow-up Appointment Request [facility], *Est. 07/24/22 +/- 2 days, Future Order, after EGD, In Approximately, [facility] Gastric Emptying [facility], 07/10/22, Routine, Reason: early satiety, Transport Mode: Ambulatory, Abdominal pain Vomiting Unintentional weight loss Anorexia Early satiety, ABN Status: Not Required Surgical Procedure Booking Request [facility], 07/10/22 8:48:00 EDT, 09/05/22 10:00:00 EDT, v/early satiety, weight l, Abdominal pain Vomiting Unintentional weight loss Anorexia Early satiety, Outpatient, EGD, Primary Procedure, 15, Diabetic, [facility], [address], [place], [id number], [id number], 4... ?? Voice recognition software utilized which may result in minor fashion patternmaker error. Future Orders [place] Gastric Emptying Study, 07/10/22, Routine, Reason: early satiety, Transport Mode: Ambulatory, Abdominal pain Vomiting Unintentional weight loss Anorexia Early satiety, ABN Status: Not Required Problem List/Past Medical History Ongoing Abdominal pain Anorexia Constipation Diastasis Diverticulosis of colon DM - Diabetes mellitus Early satiety Hydronephrosis Hypertension Kidney stone OA - Osteoarthritis of knee Obesity Polyp of colon Renal atrophy Tubular adenoma of colon Unintentional weight loss Varicose vein Vomiting Historical No qualifying data Procedure/Surgical History ???Colonoscopy (12/11/2019)???Carpal tunnel release???Nasal septoplasty???Primary repair of inguinal hernia???Rotator cuff repair???Surgery???Uvulopalatopharyngoplasty Medications amLODIPine 5 mg oral tablet, 5 mg= 1 tab, Oral, Daily aspirin 81 mg oral capsule, 81 mg= 1 cap, Oral, Daily Basaglar KwikPen 100 units/mL subcutaneous solution, 0.2 unit/kg, Subcutaneous, every night at bedtime Centrum Silver oral tablet, 1 tab, Oral, Daily cyanocobalamin 500 mcg oral tablet, 500 mcg= 1 tab, Oral, Daily empagliflozin 10 mg oral tablet, 10 mg= 1 tab, Oral, every morning Excedrin Extra Strength oral tablet, 2 tab, Oral, every 6 hr, PRN glucosamine/chondroitin/methylsulfonylmethane 375 mg-300 mg-237.5 mg oral capsule, 2 cap, Oral, BID hydroCHLOROthiazide 12.5 mg oral tablet, 12.5 mg= 1 tab, Oral, Daily insulin pen needles 32G 5 mm, See instructions lisinopril 40 mg oral tablet, 40 mg= 1 tab, Oral, Daily metFORMIN 1000 mg oral tablet, 1000 mg= 1 tab, Oral, BID One Touch Ultra Test Strips, See instructions Allergies Clavulanic acid Latex amoxicillin morphine Social History Alcohol Current, 1-2 times per month Electronic Cigarette/Vaping Electronic Cigarette Use: Never. Substance Use Never Tobacco Never tobacco user Tobacco Use:. Family History Cancer: Father. Diabetes mellitus: Father. Heart disease: Grandmother (M). Hypertension: Father. Stroke: Grandfather (P), Grandmother (M) and Grandmother (P). Family Member(s): ?? FATHER, at age: Unknown. Cause of : Family Member(s): ?? GPARENT, at age: Unknown. Cause of : Family Member(s): ?? GPARENT, at age: Unknown. Cause of : Family Member(s): ?? MOTHER, at age: Unknown. Cause of : Family Member(s): ?? GPARENT, at age: Unknown. Cause of : Electronically Signed on 07/10/22 08:52 AM Sophy Sow APRN Patient Care team information Care Team Personnel Name: KUNAL MEDINA Position: No Access Member Role: Primary Care Physician Address: Address: [place] [address]- [place]
--- OUTSIDE RECORDS SUMMARY | 2022-07-31 21:37 | XMS_ITS | Continuity of Care Document ---
Author Name Unknown Organization [facility] Address [address] [place] [address] Care Team Providers Care Work Environment Safety Inspector Name Role Phone KUNAL MEDINA Primary Care Physician [phone] Encounter [facility] NBR [id number] Date(s): 07/24/22 - 07/24/22 [facility] [address] [place] [address] Discharge Disposition: Home Allergies, Adverse Reactions, Alerts Substance Reaction Severity Status amoxicillin Unknown Active morphine Unknown Active Latex Unknown Active Clavulanic acid Unknown Active Medications amLODIPine 5 mg oral tablet 5 [...] eted Surgery 1 Completed Uvulopalatopharyngoplasty Completed 1shoulder Social History Social History Type Response Tobacco Never tobacco user T obacco Use:. Sex Patient Care team information Care Team Personnel Name: KUNAL MEDINA Position: No Access Member Role: Primary Care Physician Address: Address: [place] [address]- [place]
--- NOTE | 2022-07-31 21:46 | W.ED.GENAD ---
Discharge Plan Disposition Patient Disposition: Transfer-Acute Inpatient Care Specific Acute Inpt Facility: [facility] Condition: Good Discharge Details Chief Complaint: Abd Prob Clinical Impression: Jejunostomy tube fell out Primary Care Provider: Layla Henry ED Provider: Ryder Magdaleno Home Meds and New Rx's Prescriptions: No Action (DME) OneTouch Ultra Blue Test Strip Strip See Rx Instructions .ROUTE .MEDSUPPLY Qty: 100 3RF Rx Instructions: twice daily and prn aspirin 81 mg tablet,delayed release (DR/EC) 81 mg PO DAILY (DME) FreeStyle Cesar 2 [place] Misc See Rx Instructions .ROUTE .MEDSUPPLY Qty: 1 0RF Rx Instructions: As directed hydrochlorothiazide 12.5 mg tablet 12.5 mg PO DAILY Qty: 90 4RF metformin 1,000 mg tablet 1,000 mg PO BID Qty: 180 4RF (DME) pen needle, diabetic [1st Tier Unifine Pentips] 32 gauge x 5/32 needle See Rx Instructions .ROUTE .MEDSUPPLY Qty: 90 4RF Rx Instructions: once daily insulin glargine [Basaglar KwikPen U-100 Insulin] 100 unit/mL (3 mL) insulin pen 25 unit SC BID Excedrin Extra Strength 1 EACH tablet 2 tab PO PRN glucosam-chond pf-urxixn-pe ac 1 EACH capsule 2 ea PO DAILY CENTRUM SILVER TABLET 1 EACH tablet 1 ea PO DAILY cyanocobalamin (vitamin B-12) [Vitamin B-12] 500 MCG tablet 500 mcg PO DAILY Qty: 90 0RF amlodipine 5 mg tablet 5 mg PO DAILY Qty: 90 3RF (DME) FreeStyle Cesar 2 Sensor Kit See Rx Instructions .ROUTE .MEDSUPPLY Qty: 1 11RF Rx Instructions: 4 x daily lisinopril 20 mg tablet 20 mg PO DAILY Qty: 90 3RF Discharge Instructions Additional Instructions: We have applied tape over your tube. Do not drink anything on your way down to [facility]. Go directly to [facility] emergency department. When you arrive at the level that you were called in by the cytology manager Dr. Hoff who wants to evaluate you in the emergency department. Referrals: Layla Henry, [facility] [Primary Care Provider] - Medical Decision Making This is a 71-year-old male with a past medical history of hypertension, type 2 diabetes mellitus, atrophic left kidney, shoulder surgery, left inguinal hernia, with a circumferential benign appearing ulcer just past by the pylorus, who recently had a percutaneous GJ tube placed endoscopically at [facility] on 07/26/22 5 days ago who presents today for evaluation of his tube. Patient states that about 15 minutes ago his dog grabbed onto the end of the tube and pulled it. He partially pulled it out. He immediately came to the ER for further assessment. It was leaking initially. He denies any vomiting or diarrhea. No other pain otherwise. No bleeding. No other complaints. Exam demonstrates the button About 4 cm off of the skin. The balloon shaped component is also out of the skin, however this is not inflating balloon, but rather emergency room shaped device. The second blue tubule still appears to be in place. No active bleeding or discharge or drainage. I did contact surgery/Dr. Helm, and discussed the case with her. She states that these have to be replaced percutaneously, and not able to be done here, additionally we do not have any of the tubes necessary for replacement. We will reach out to [facility]. 10:50 PM I spoke with Dr. Hoff at [facility]. He discussed the case with his 2 attendings. At this time after discussion they feel that the patient should come down immediately for scoping. While he is not emergently unstable, they feel that the tube needs to be replaced right away while the tract is still fresh. I did give the patient the option of transfer via ambulance which would be the safer option versus going down POV as he is medically stable. Understanding the risks and benefits patient and have requested to be transferred POV. The case was confirmed with the emergency department Dr. Saenz. Patient will be transferred be via POV for definitive management at [facility]. I have extensively reviewed the treatment plan and discharge instructions with the patient and their family. I have addressed all patient concerns at this time. The patient and family was made aware of what symptoms to monitor for that would warrant a return to the emergency department. Discussed the plan with the patient and family, they demonstrate verbal understanding and agreement with our assessment and plan at this time. The documentation in this chart was dictated using [employer] dictation software. Please excuse any dictation errors. HPI General Date/Time Provider Initiated Documentation: 07/31/22 21:32. HPI Narrative: This is a 71-year-old male with a past medical history of hypertension, type 2 diabetes mellitus, atrophic left kidney, shoulder surgery, left inguinal hernia, with a circumferential benign appearing ulcer just past by the pylorus, who recently had a percutaneous GJ tube placed endoscopically at [facility] on 07/26/22 5 days ago who presents today for evaluation of his tube. Patient states that about 15 minutes ago his dog grabbed onto the end of the tube and pulled it. He partially pulled it out. He immediately came to the ER for further assessment. It was leaking initially. He denies any vomiting or diarrhea. No other pain otherwise. No bleeding. No other complaints. Related Data Home Medications Medication Instructions Recorded Confirmed Centrum Silver Tablet 1 ea PO DAILY 10/15/12 07/09/22 onxstfu-dqnfjucxggsru-fhqtdwde 250 2 tab PO PRN 10/15/12 07/09/22 mg-250 mg-65 mg tablet (Excedrin Extra Strength) yrcovyptje-kdofrmzpot-pihxlzea-hyalur 2 ea PO DAILY 10/15/12 07/31/22 ac 375 mg-300 mg-175 mg-2 mg cap cyanocobalamin (vitamin B-12) 500 500 mcg PO DAILY #90 caps 09/16/17 07/31/22 mcg tablet (Vitamin B-12) aspirin 81 mg tablet,delayed 81 mg PO DAILY 11/27/19 07/09/22 release blood sugar diagnostic (OneTouch #100 ea 10/06/20 07/09/22 Ultra Blue Test Strip) flash glucose scanning reader #1 ea 04/04/21 07/09/22 (FreeStyle Cesar 2 [place]) hydrochlorothiazide 12.5 mg tablet 12.5 mg PO DAILY #90 tabs 10/10/21 07/31/22 metformin 1,000 mg tablet 1,000 mg PO BID #180 tab-caps 10/10/21 07/31/22 pen needle, diabetic 32 gauge x #90 ea 10/10/21 07/09/22 (1st Tier Unifine Pentips) amlodipine 5 mg tablet 5 mg PO DAILY #90 tabs 12/05/21 07/31/22 flash glucose sensor (FreeStyle #1 ea 06/07/22 07/09/22 Cesar 2 Sensor kit) insulin glargine 100 unit/mL (3 25 unit subcut BID 06/11/22 07/31/22 mL) subcutaneous pen (Basaglar KwviraPen U-100 Insulin) lisinopril 20 mg tablet 20 mg PO DAILY #90 tabs 06/25/22 07/31/22 Previous Rx's Medication Instructions Recorded cyanocobalamin (vitamin B-12) 500 500 mcg PO DAILY #90 caps 09/16/17 mcg tablet (Vitamin B-12) blood sugar diagnostic (OneTouch #100 ea 10/06/20 Ultra Blue Test Strip) flash glucose scanning reader #1 ea 04/04/21 (FreeStyle Cesar 2 [place]) hydrochlorothiazide 12.5 mg tablet 12.5 mg PO DAILY #90 tabs 10/10/21 metformin 1,000 mg tablet 1,000 mg PO BID #180 tab-caps 10/10/21 pen needle, diabetic 32 gauge x #90 ea 10/10/21 (1st Tier Unifine Pentips) amlodipine 5 mg tablet 5 mg PO DAILY #90 tabs 12/05/21 flash glucose sensor (FreeStyle #1 ea 06/07/22 Cesar 2 Sensor kit) lisinopril 20 mg tablet 20 mg PO DAILY #90 tabs 06/25/22 Allergies Allergy/AdvReac Type Severity Reaction Status Date / Time latex Allergy Severe skin mir Unverified 07/31/22 21:43 and infection morphine Allergy Severe Itching Unverified 07/31/22 21:43 amoxicillin Allergy Intermediate SKIN RASH Unverified 07/31/22 21:43 clavulanic acid Allergy Intermediate Skin Rash Unverified 07/31/22 21:43 General Stated Complaint: Abd Prob ANGELLA: 3 Review of Systems All systems reviewed & are unremarkable except as noted in HPI and below PFSH All Active Problems (Updated 07/31/22 @ 22:53 by Ryder Magdaleno DO) Jejunostomy tube fell out (Acute) Primary osteoarthritis of right knee (Acute) Allergies (Acute) year round Hypertension (Acute) Obesity (Acute 10/21/13) Varicose veins of lower extremity (Acute) Tubular adenoma of colon (Acute) Diabetes type 2, uncontrolled (Acute) Medical History Atrophy of left kidney Diastasis recti (09/05/15) Diverticulosis Hydronephrosis Kidney stone (03/14/07) right hydronephrosis-stone removed-Shree right hydro - stone removed - [place] 2011 Right hydro - stone voided 2017 Surgical History Nasal septoplasty Open Carpal Tunnel release right Repair of inguinal hernia right shoulder surgery Rotator Cuff Repair left S/P uvulopalatopharyngoplasty Family History Father , 79 Diabetes Essential hypertension Cancer Prostate? Colon? Maternal Grandfather , 87 Stroke Heart disease Maternal Grandmother , 92 Stroke Mother , 76 No problems noted. Sister No problems noted. Sister No problems noted. Brother No problems noted. Daughter No problems noted. Daughter No problems noted. Paternal Grandfather No problems noted. Paternal Grandmother , 76 Stroke Social History Smoking/Tobacco Use Status: Never Second Hand Exposure: Yes Smoking risk assessment performed?: Yes Alcohol Intake: current Alcohol Intake frequency: a few times a month Alcohol type: beer Drug use: Never Substance use type: does not use Caregiver/Support person: No Household members: spouse and children Housing: house Communication Needs: None Do you need help understanding health information?: Rarely Pets and animals: Yes Pets and animals: cat(s) and dog(s) Sexually active: No Do you think of yourself as: straight/heterosexual Current gender identity: male What is your relationship status?: How often do you talk on the phone with friends or family?: twice per week How often do you get together with friends or relatives?: once per week How often do you attend jew or baptism services?: 1-3 times per year Do you belong to any clubs or organized social groups?: no Panel score (0-1 are the most socially isolated patients): 2 What type of physical activity do you participate in: walking Duration: 60-90 minutes/day Frequency: 3-4 times per week Cortney/Sabianism: Catholic Special cortney needs: No Seatbelt use: always Helmet use: Yes Helmet use: always Drive intox or ride w/intox regional company truck driver: No Do you feel safe at home: Yes Do you feel safe in your relationship?: Yes Exam Narrative Exam Narrative: 1.Const: Well-nourished, Well-developed, appearing stated age 2.Eyes: PERRL, no conjunctival injection, and symmetrical lids. 3.ENT: Atraumatic external nose and ears. Moist MM. Neck: Symmetric, trachea midline, No thyromegaly. 4.CVS: +S1/S2, No murmurs or gallops. Peripheral pulses 2+ and equal in all extremities. Brisk capillary refill in all extremities. 5.RESP: Unlabored respiratory effort. Clear to auscultation bilaterally. No wheezes rales or rhonchi 6.GI: Soft, Nontender/Nondistended, No hepatosplenomegaly. No guarding or rebound. Patient does demonstrate the mushroom-shaped balloon component beneath the Outside of the skin. However the thin appearing line that extends to likely the jejunum still appears to be in place and has not come out. No bleeding. Minimal tenderness in that area. 7.MSK: Normocephalic/Atraumatic, Extremities w/o deformity or ttp No cyanosis or clubbing, Normal movement of all extremities 8.Skin: Warm, Dry. No rashes or lesions. 9.Neuro: centrifugal screen tender II-XII grossly intact. Sensation grossly intact, no focal neurologic deficits. 10.Psych: (AAO) x3. Appropriate mood and affect Course Vital Signs Vital signs: Vital Signs Temperature 36.9 C 07/31/22 21:30 Pulse 81 07/31/22 21:30 Respiratory Rate 19 07/31/22 21:30 Blood Pressure 139/83 07/31/22 21:30 Pulse Oximetry 97 07/31/22 21:30 Temperature 36.9 C 07/31/22 21:30 Temperature Source Temporal Artery Scan 07/31/22 21:30 Pulse 81 07/31/22 21:30 Respiratory Rate 19 07/31/22 21:30 Respiratory Effort Normal 07/31/22 21:34 Blood Pressure 139/83 07/31/22 21:30 Blood Pressure Position Sitting 07/31/22 21:30 Pulse Oximetry 97 07/31/22 21:30 Oxygen Delivery Method Room Air 07/31/22 21:30 Oxygen Flow Rate 0 07/31/22 21:30 Pain Level 0 07/31/22 21:30
[2022-07-31 22:58] VITALS: BP 147/92; PULSE 72; O2SAT 97
== END 2022-07-31 23:01 | disposition short-term general hospital (02) ==
PROVIDERS: Emergency Provider Student in an Organized Health Care Education/Training Program; PCP Nurse Practitioner Family
DX: T85.528A Displacement of other gastrointestinal prosthetic devices, implants and grafts, initial encounter (principal)
CPT/HCPCS: 99285

== ENCOUNTER 2022-09-18 03:18 | Outpatient (CLI) | payer MEDICARE, SELFPAY ==
[2022-09-18 13:11] LABS: ALT 24 U/L (16-63); AST 15 U/L (15-37); Albumin 3.6 g/dL (3.4-5.0); Alkaline Phosphatase 89 U/L (46-116); Anion Gap 8.9 mmol/L (3-11); BUN 19 mg/dL (7-18); Bilirubin, Total 0.3 mg/dL (0.2-1.0); CO2 28.1 mmol/L (21.0-32.0); Calcium 9.6 mg/dL (8.5-10.1); Chloride 105 mmol/L (98-107); Estimated GFR 80.47 (mL/min/1.73m2); Glucose 129 mg/dL (74-106); Potassium 5.3 mmol/L (3.5-5.1); Sodium 142 mmol/L (136-145); Total Protein 7.5 g/dL (6.4-8.2)
== END 2022-09-18 03:19 | disposition home or self-care (01) ==
LOC: LOS 03:18
PROVIDERS: PCP Nurse Practitioner Family; Visit Provider Nurse Practitioner Family
DX: I10 Essential (primary) hypertension (principal)
CPT/HCPCS: 36415; 80053

== ENCOUNTER 2022-11-20 10:25 | Outpatient (CLI) | payer MEDICARE, SELFPAY ==
--- NOTE | 2022-11-20 09:30 | DI.RAD_ITS ---
Exam(s) XR SHOULDER RT COMPLETE 2+V EXAM: XR SHOULDER RT COMPLETE 2+V CLINICAL HISTORY: right shoulder pain. TECHNIQUE: 2D digital imaging was performed of the right shoulder. Two images were obtained. AP, G rashey, Y-view and axillary views were obtained. COMPARISON: CR RIGHT SHOULDER COMPLETE from 01/12/2015 FINDINGS: BONES: No acute fracture is present. No bony destructive lesion is seen. Postsurgical are seen in the humeral head. JOINTS: No dislocation present. There are degenerative changes seen at the acromioclavicular joint ch aracterized by joint space narrowing and mild spurring. There are postsurgical changes seen at the a cromioclavicular joint. There does appear to be superior subluxation of the humeral head which may r eflect chronic rotator cuff tear. SOFT TISSUE: Normal. IMPRESSION: Postsurgical and degenerative changes in the right shoulder as described above. DATA REPOSITORY: RADIATION DOSE DELIVERED:
--- NOTE | 2022-11-20 09:30 | DI.RAD_ITS ---
Exam(s) XR SHOULDER LT COMPLETE 2+V EXAM: XR SHOULDER LT COMPLETE 2+V CLINICAL HISTORY: left shoulder pain. TECHNIQUE: 2D digital imaging was performed of the left shoulder. Two images were obtained. AP and axillary views were obtained. COMPARISON: There are no priors for comparison. FINDINGS: BONES: No acute fracture is present. No bony destructive lesion is seen. Postsurgical changes are see n in the humeral head. A portion of the orthopedic screw extends beyond the cortex. Correlation wit h prior examinations is recommended. JOINTS: No dislocation present. Degenerative changes are seen at the acromioclavicular and glenohumer al joints. SOFT TISSUE: Normal. IMPRESSION: No acute abnormality. DATA REPOSITORY: RADIATION DOSE DELIVERED:
== END 2022-11-20 10:26 | disposition home or self-care (01) ==
LOC: DIORS 10:25
PROVIDERS: PCP Nurse Practitioner Family; Referring Provider Nurse Practitioner Family; Visit Provider Student in an Organized Health Care Education/Training Program
DX: M19.011 Primary osteoarthritis, right shoulder; M19.012 Primary osteoarthritis, left shoulder
CPT/HCPCS: 20610; 99214; 73030; J1030

== ENCOUNTER 2022-11-29 10:15 | Outpatient (CLI) | payer MEDICARE, SELFPAY ==
--- NOTE | 2022-11-29 09:15 | DI.RAD_ITS ---
Exam(s) XR KNEE RT 1V EXAM: XR KNEE RT 1V CLINICAL HISTORY: right knee pain. TECHNIQUE: 2D digital imaging was performed. COMPARISON: CR XR KNEE RT 3V AP,LAT,KRISTI from 01/24/2021 CR XR STANDING ALIGNMENT from 11/29/2022 FINDINGS: Single lateral view Significant narrowing of the medial compartment noted. No prominent joint effusion. No osseous lesi ons. Vascular calcification in the popliteal artery noted. IMPRESSION: As above. DATA REPOSITORY: RADIATION DOSE DELIVERED:
--- NOTE | 2022-11-29 09:15 | DI.RAD_ITS ---
Exam(s) XR STANDING ALIGNMENT EXAM: XR STANDING ALIGNMENT CLINICAL HISTORY: right knee pain. TECHNIQUE: 2D digital imaging was performed. COMPARISON: CR XR KNEE RT 3V AP,LAT,KRISTI from 01/24/2021 FINDINGS: 3 views There is advanced narrowing of the medial compartment of the right knee again noted. Lateral compart ment exhibits normal height. Lesser amount of narrowing of the medial compartment of the opposite-le ft knee noted. Mild degenerative changes in the right hip evident. Ankles unremarkable. No osseous lesions. IMPRESSION: As above. DATA REPOSITORY: RADIATION DOSE DELIVERED:
== END 2022-11-29 10:16 | disposition home or self-care (01) ==
LOC: DIORS 10:15
PROVIDERS: PCP Nurse Practitioner Family; Referring Provider Nurse Practitioner Family; Visit Provider Student in an Organized Health Care Education/Training Program
DX: M17.11 Unilateral primary osteoarthritis, right knee (principal)
CPT/HCPCS: 20610; 73560; 77073; J1040

== ENCOUNTER → 2023-01-15 09:41 | Outpatient (BNVA) | payer MEDICARE, SELFPAY | PROVIDERS: PCP Nurse Practitioner Family; Referring Provider Nurse Practitioner Family; Visit Provider Student in an Organized Health Care Education/Training Program | DX: M19.011 Primary osteoarthritis, right shoulder; M19.012 Primary osteoarthritis, left shoulder; Z93.4 Other artificial openings of gastrointestinal tract status | CPT/HCPCS: 99213 ==

== ENCOUNTER → 2023-06-27 01:31 | Outpatient (CLI) | payer MEDICARE, SELFPAY ==
--- NOTE | 2023-06-27 13:10 | DI.US_ITS ---
Exam(s) US CAROTID EXAM: US CAROTID CLINICAL HISTORY: retinal vein occlusion, branch retinal vein occlusion lt eye, [id number]. TECHNIQUE: Ultrasound carotids performed using grayscale, color-flow, and spectral Doppler imaging. COMPARISON: No exams were available for comparison FINDINGS: CAROTID ARTERIES: There is some plaque evident in the right carotid bulb There are no associated elevated velocities. In the left carotid bulb there is also some plaque evident but also without elevated velocities. VERTEBRAL ARTERIES: Antegrade flow was demonstrated in both vertebral arteries. Measurements: R Bulb: 74.4cm/s PS / 15.3cm/s ED R CCA: 88.5cm/s PS / 15.3cm/s ED R ECA: 111.2cm/s PS / 10.8cm/s ED R ICA Prox: 66cm/s PS / 17cm/s ED R ICA Mid: 61.7cm/s PS / 16.8cm/s ED R ICA Distal: 89.4cm/s PS /22.9cm/s ED R Vert: 53.1cm/s PS / 12cm/s ED R SVR: 1 R DVR: 1.5 L Bulb: 83.1cm/s PS / 14.3cm/s ED L CCA: 79.4cm/s PS / 19.2cm/s ED L ECA: 66.2cm/s PS / 7.1cm/s ED L ICA Prox: 66.2cm/s PS / 9.5cm/s ED L ICA Mid: 82.4cm/s PS / 16.6cm/s ED L ICA Distal: 68.9cm/s PS / 20.1cm/s ED L Vert: 61.8cm/s PS / 11.8cm/s ED L SVR: 1 L DVR: 0.7 IMPRESSION: 1. There is plaque evident in both carotid bulbs without associated elevated velocities, indicating the amount of stenosis is less than 50 percent 2. Antegrade flow is demonstrated both vertebral arteries. Criteria for Carotid Stenosis: Normal: ICA PSV <125 cm/s no plaque or intimal thickening is visible. <50% stenosis: ICA PSV <125 cm/s and plaque or intimal thickening is visible. 50-69% stenosis: ICA PSV is 125-250 cm/s and plaque is visible. >70% stenosis to near occlusion: ICA PSV >250 cm/s with visible plaque and luminal narrowing. DATA REPOSITORY:
== END ==
PROVIDERS: PCP Nurse Practitioner Family; Visit Provider Nurse Practitioner Family
DX: H34.8322 Tributary (branch) retinal vein occlusion, left eye, stable (principal)
CPT/HCPCS: 93880

== ENCOUNTER 2023-08-08 09:02 | Outpatient (RCR) | payer MEDICARE, SELFPAY ==
--- NOTE | 2023-08-08 09:30 | HOLTER_ITS ---
APPROVED REPORT Conclusion This is a 48-hour Holter monitor Predominant rhythm was sinus with an average heart rate of 71. Minimum was 50, maximum 114 There were rare isolated ventricular ectopic beats There were occasional atrial premature beats A total of 8 self-limited atrial runs occurred. The longest of these was 4 beats in duration There was no atrial fibrillation, no high-grade AV block, no pauses greater than 3 seconds
== END 2023-08-13 23:59 | disposition home or self-care (01) ==
LOC: CARDOPNVT 09:02
PROVIDERS: PCP Nurse Practitioner Family; Visit Provider Internal Medicine Cardiovascular Disease
DX: R00.2 Palpitations (principal)
CPT/HCPCS: 93227; 93225; 93226

== ENCOUNTER → 2023-09-17 08:04 | Outpatient (BNVA) | payer MEDICARE, SELFPAY | PROVIDERS: PCP Nurse Practitioner Family; Referring Provider Nurse Practitioner Family; Visit Provider Student in an Organized Health Care Education/Training Program | DX: M19.011 Primary osteoarthritis, right shoulder | CPT/HCPCS: 99214 ==

== ENCOUNTER → 2023-09-19 14:42 | Outpatient (BNVA) | payer MEDICARE, SELFPAY | PROVIDERS: PCP Nurse Practitioner Family; Referring Provider Nurse Practitioner Family; Visit Provider Student in an Organized Health Care Education/Training Program | DX: M17.11 Unilateral primary osteoarthritis, right knee (principal) | CPT/HCPCS: 20610; J1010 ==

== ENCOUNTER → 2023-10-04 00:30 | Outpatient (CLI) | payer MEDICARE, SELFPAY ==
--- NOTE | 2023-10-04 07:15 | DI.CT_ITS ---
Exam(s) CT UPPER EXTREMITY RT WO EXAM: CT UPPER EXTREMITY RT WO CLINICAL HISTORY: R SHOULDER SURGICAL PLANNING, ROT CUFF ARTHROPATHY, ARTHRITIS TECHNIQUE: Imaging Protocol: Axial computed tomography images with coronal and sagittal reformatted images were created and reviewed. CONTRAST MATERIAL: Intravenous: Omnipaque 350 Contrast volume:structured data in ml Contrast route:I V - COMPARISON: CR XR SHOULDER LT COMPLETE 2+V from 11/20/2022 CR XR SHOULDER RT COMPLETE 2+V from 11/20/2022 FINDINGS: Bones: There is no evidence of fracture or dislocation. No cellulitic or osteomyelitic changes are identified. No lytic or sclerotic lesions are identified. Multiple suture anchors in the humeral head. Prior resection of distal clavicle. Ossicle adjacent t o tip of acromion. Joints: Degenerative changes of glenohumeral joint a periarticular spurring. Soft Tissues: Normal. IMPRESSION: Postsurgical and degenerative changes. RADIATION DOSE DELIVERED: 1,024.73mGy.cm Total DLP DATA REPOSITORY: All CT scans at this facility are submitted to the National Radiology Data Registry (NRDR) Dose Index Registry (DIR) with the [employer] (ACR). RADIATION OPTIMIZATION: All CT scans at this facility use at least one of these dose optimization te chniques: automated exposure control; mA and/or kV adjustment per patient size (includes targeted exa ms where dose is matched to clinical indication); or iterative reconstruction.
== END ==
PROVIDERS: PCP Nurse Practitioner Family; Visit Provider Student in an Organized Health Care Education/Training Program
DX: M12.811 Other specific arthropathies, not elsewhere classified, right shoulder (principal); M19.011 Primary osteoarthritis, right shoulder
CPT/HCPCS: 73200

== ENCOUNTER 2023-10-31 06:04 | Day surgery (SDC) | payer MEDICARE, SELFPAY ==
[2023-10-31] VITALS (24 sets, daily range): BP systolic 98–155; BP diastolic 47–82; PULSE 67–84; RESP 12–25; TEMP 36.4–37.1; O2SAT 74–96; BMI 33.4
--- NOTE | 2023-10-31 05:45 | ANES.PREOP_ITS ---
General Info Date of Service Date Performed: 10/31/23 Height: 5 ft 10 in Weight: 105.687 kg Body Mass Index (BMI): 33.4 Surgical Procedure: Operation Date: 10/31/23 07:40 Proposed Procedure Side Surgeon p Shoulder Reverse Total Arthroplasty, Biceps Tenodesis Right Yakov Freeman MD Meds Allergies and Home Medications Allergies Allergy/AdvReac Type Severity Reaction Status Date / Time latex Allergy Severe skin mir Verified 10/31/23 06:17 and infection morphine Allergy Severe Itching Verified 10/31/23 06:17 amoxicillin Allergy Intermediate SKIN RASH Verified 10/31/23 06:17 clavulanic acid Allergy Intermediate Skin Rash Verified 10/31/23 06:17 Home Medication ?Medication ?Instructions ?Recorded flash glucose scanning reader #1 ea 09/06/22 (FreeStyle Cesar 2 [place]) pen needle, diabetic 32 gauge x #90 ea 10/18/22 (1st Tier Unifine Pentips) metformin 1,000 mg tablet 1,000 mg PO BID #180 tab-caps 11/26/22 polyethylene glycol 3350 17 17 g PO DAILY 04/19/23 gram/dose oral powder omeprazole 40 mg capsule,delayed 40 mg PO BID #180 caps 07/15/23 release lisinopril 30 mg tablet 30 mg PO DAILY #90 tabs 09/12/23 blood-glucose sensor (FreeStyle #1 ea 10/07/23 Cesar 3 Sensor device) amlodipine 5 mg tablet 5 mg PO DAILY #90 tabs 10/14/23 blood sugar diagnostic #100 ea 10/14/23 blood sugar diagnostic (Blood #100 ea 10/14/23 Glucose Test strips) blood-glucose meter #1 ea 10/14/23 lancets #100 ea 10/14/23 insulin glargine 100 unit/mL (3 40 unit subcut QPM 10/30/23 mL) subcutaneous pen (Basaglar KwikPen U-100 Insulin) Current Visit Medications: Current Medications Generic Name Dose Route Start Last Admin Trade Name Freq PRN Reason Stop Dose Admin Ringer's Solution 1,000 mls @ 30 mls/hr 10/31/23 06:00 IV 10/31/23 23:59 INFUSION RADHA Cefazolin Sodium 3,000 mg/ 100 mls @ 200 mls/hr 10/31/23 06:00 Sodium Chloride IVPB 10/31/23 23:59 PREOP RADHA Tranexamic Acid/Sodium Chloride 1,000 mg in 100 mls @ 600 mls/hr 10/31/23 06:00 IVPB 10/31/23 23:59 PREOP RADHA IV Miscellaneous Supplies 1 each 10/31/23 06:00 Iv Access IV 10/31/23 23:59 DIRECTED RADHA Sodium Chloride 0 ml 10/31/23 06:00 Normal Saline Flush 10 Ml Syr IV 10/31/23 23:59 PRN PRN Sodium Chloride 0 ml 10/31/23 06:00 Normal Saline 10 Ml Vial IJ 10/31/23 23:59 DIRECTED PRN Sterile Water 0 ml 10/31/23 06:00 Water,Injection,Sterile 10 Ml Vial IJ 10/31/23 23:59 DIRECTED PRN PFSH Active Problems Active Problems: Problem Status Onset Code Fluttering heart Acute I49.8 Branch retinal vein occlusion of left eye Acute H34.8322 Rotator cuff arthropathy of right shoulder Acute M12.811 Arthritis of both glenohumeral joints Acute M19.011, M19.012 Primary osteoarthritis of right knee Acute M17.11 Allergies Acute T78.40XA Hypertension Acute I10 Obesity Acute 10/21/13 E66.9 Varicose veins of lower extremity Acute I83.90 Tubular adenoma of colon Acute D12.6 Diabetes type 2, uncontrolled Acute E11.65 Medical History Medical History Diverticulosis Hydronephrosis Diastasis recti (09/05/15) Kidney stone (03/14/07) right hydronephrosis-stone removed-Shree right hydro - stone removed - [place] 2011 Right hydro - stone voided 2018 Atrophy of left kidney Surgical History Surgical History S/P bypass gastrojejunostomy 04/11/23 at [facility] [place] Gen Surg. -hb S/P uvulopalatopharyngoplasty right shoulder surgery Rotator Cuff Repair left Open Carpal Tunnel release right Nasal septoplasty Repair of inguinal hernia Tobacco Smoking/Tobacco Use Status: Never Passive smoking exposure: Yes Second hand exposure: Yes Alcohol Alcohol Intake: current Alcohol intake frequency: a few times a month Alcohol type: beer Substance Use Substance use: Never Substance use type: does not use Vital Signs and Lab Results Vital Signs Most Recent Vital Signs in EMR: Temp Pulse Resp BP Pulse Ox 37.1 C 72 23 144/72 H 74 L 10/31/23 07:04 10/31/23 07:04 10/31/23 07:04 10/31/23 07:04 10/31/23 07:04 Lab Results Blood Type / Crossmatch: No Data to Display Complete Blood Count: No Data to Display Complete Metabolic Panel: Hemoglobin A1c 7.5 % (4.5-5.7) H 10/14/23 09:18 Liver Function Panel: No Data to Display Coagulation Panel: No Data to Display Cardiac Panel: No Data to Display Arterial Blood Gas: No Data to Display Venous Blood Gas: No Data to Display Pancreas Panel: No Data to Display Thyroid Panel: No Data to Display Infectious Disease: No Data to Display Blood Cultures: No Data to Display Toxicology Panel: 2 No Data to Display Imaging and Studies Imaging and Studies Study information below may be from another EMR and interpreted by another provider. Please see original notes in EMR for more complete details. Carotid Artery Summary:: 06/27/23: IMPRESSION: 1. There is plaque evident in both carotid bulbs without associated elevated velocities, indicating the amount of stenosis is less than 50 percent 2. Antegrade flow is demonstrated both vertebral arteries. Anesthesia Assessment and Plan Anesthesia History Personal History: No History of Anesthesia Complications Family History: No Family History of Anesthesia Complications Exercise Tolerance Exercise Tolerance: Metabolic Equivalents>4 Pertinent Negatives Pertinent Negatives: No Symptoms of GERD and No Major Pulmonary Symptoms or Complaints Cardiac & Pulmonary Exam Cardiac Exam: Normal S1/S2 Heart Sounds Pulmonary Exam: Clear Bilateral Breath Sounds Implantable Cardiac Device Does patient have a Pacemaker or an ICD?: No Airway Exam Known Difficult Airway: No Mallampati Class: 2 Mouth Opening: Normal (> 3cm) Thyromental Distance: Greater than 3 cm Neck Range of Motion: Full ROM Neck Circumference: Normal Teeth Condition: Removable Dentures/Plates Upper ASA Classification ASA Score: ASA 3 Emergency Case?: No NPO Status NPO Status: NPO Clears >2 hours, Solids >8 hours Anesthesia Plan Resuscitation Status: Full Code Anesthesia Technique: General Anesthesia Airway Planned: Endotracheal Tube Pain Management: Surgeon and patient request nerve block Monitors Used: Standard Monitors, Arterial Line and SedLine Preoperative Comments:: Chart review indicates patient diagnosed with retinal vein occlusion in May 2023, but subsequent carotid studies negative. Discussed beach chair position with patient and recently uncontrolled HTN along with uncontrolled DMII, in which the patient was seen by PCP 10/13 for change in management and medication change. Dr. Freeman made aware of recent increase in A1C as well as elevated blood pressures. Blood pressure this morning is controlled and plan for GA/ETT, Sedline, Arterial line.
[2023-10-31] MEDS: Lactated Ringers 1,000 ML 30 ML IV (07:00)
--- NOTE | 2023-10-31 07:16 | W.PM.DSUDISC ---
Date of service: 10/31/23 Time of Service: 13:00 Discharge Plan Disposition Patient Disposition: Home Condition: Stable Discharge Details Attending Provider: Yakov Freeman Primary Care Provider: Layla Henry Meds and New Rx's Prescriptions: New naproxen 250 mg tablet 250 mg PO BID PRN (Reason: Moderate pain) 14 Days Qty: 28 0RF oxycodone 5 mg tablet 5 - 10 mg PO Q4H PRN (Reason: Moderate to severe pain) Qty: 18 0RF Continued omeprazole 40 mg capsule,delayed release(DR/EC) 40 mg PO BID Qty: 180 3RF (DME) pen needle, diabetic [1st Tier Unifine Pentips] 32 gauge x 5/32 needle See Rx Instructions .ROUTE .MEDSUPPLY Qty: 90 4RF Rx Instructions: once daily amlodipine 5 mg tablet 5 mg PO DAILY Qty: 90 3RF (DME) lancets Misc See Rx Instructions .MEDSUPPLY Qty: 100 3RF Rx Instructions: As directed to check daily blood glucose. No insulin. Dispense covered brand. Dx: E11.9 to maintain HbA1c less than 7%. (DME) blood-glucose meter Misc See Rx Instructions .MEDSUPPLY Qty: 1 0RF Rx Instructions: As directed to check three times daily, blood glucose and PRN. On insulin. Dispense covered brand. Dx: E11.9 to maintain HbA1c less than 7%. (DME) Blood Glucose Test Strip See Rx Instructions .MEDSUPPLY Qty: 100 3RF Rx Instructions: As directed to check three times daily blood glucose, and PRN. On insulin. Dispense covered brand. Dx: E11.9 to maintain HbA1c less than 7%. (DME) blood sugar diagnostic Strip See Rx Instructions .ROUTE .MEDSUPPLY Qty: 100 3RF Rx Instructions: As directed to check three times daily blood glucose, and PRN. On insulin. Dispense covered brand. Dx: E11.9 to maintain HbA1c less than 7%. (DME) FreeStyle Cesar 2 [place] Mis See Rx Instructions .ROUTE .MEDSUPPLY Qty: 1 0RF Rx Instructions: As directed metformin 1,000 mg tablet 1,000 mg PO BID Qty: 180 4RF polyethylene glycol 3350 17 gram/dose powder 17 g PO DAILY Rx Instructions: 04/11/23 Per [facility] [place] -hb lisinopril 30 mg tablet 30 mg PO DAILY Qty: 90 3RF (DME) FreeStyle Cesar 3 Sensor Device See Rx Instructions .Route Qty: 1 11RF Rx Instructions: test 4 times daily. insulin glargine [Basaglar KwikPen U-100 Insulin] 100 unit/mL (3 mL) insulin pen 40 unit SC QPM Discharge Instructions Additional Instructions: Surgery: Right reverse total shoulder arthroplasty with removal of hardware Activity: Do not lift anything heavier than a coffee. You should keep your arm at your side in a relatively neutral position at all times except for gentle range of motion exercises, physical therapy, and essential activities. You should use the sling whenever you are out of the house. At home it is best to remove the sling and rest the arm on a pillow at your side or support the operative side with your other hand. A physical therapy prescription will be sent electronically to start in about 3 weeks. STANDARD Reverse TSA Protocol. Prescriptions: Naproxen 250 mg take 1 every 12 hours with a meal as needed for moderate pain, do not take for more than 2 weeks. Be sure to continue taking your omeprazole as directed especially while taking naproxen. Oxycodone 5 mg take 1-2 every 4-6 hours as needed for severe pain. You may use [id number] Tylenol (acetaminophen) as needed for mild pain. These pain medications may be taken all at once or in different combinations as needed. Also, recommend Colace (docusate) as a stool softener as surgery and pain medicine cause constipation. You may try [id number] diphenhydramine (Benadryl) 25-50 mg nightly as a sleep aid Dressings: Leave dressing in place until follow-up. Keep clean and dry at all times. No showers please. Follow-up: 10-[address] Freeman You may take off the leg compression stockings this evening at home. You may also leave them on a few days longer if you have a history of leg swelling or edema. Please call the office during business hours with any questions or concerns. Let us know right away if you develop any redness, drainage, fevers, chest pain, or trouble breathing. Do not drink alcohol or drive for at least 24 hours after anesthesia. Stand Alone Forms: Anesthesia Discharge Inst., Anes.Nerve Block Instructions, [place] (DSU) Discharge Orders Discharge Orders: Discharge Order (Routine); Ordered 10/31/23 Ordered By: Eric Alatorre DS: Diagnosis Discharge Diagnosis (1) Rotator cuff arthropathy of right shoulder: Status: Acute
--- NOTE | 2023-10-31 07:48 | W.PM.OP ---
Date of service: 10/31/23 Time of Service: 08:00 Operative Note Operative Note DATE OF PROCEDURE: 10/31/23 PRE-OP DIAGNOSIS: Right: 1. Rotator cuff arthropathy 2. Retained prior rotator cuff repair hardware POST-OP DIAGNOSIS: same PROCEDURE: Right: 1. Reverse total shoulder arthroplasty, CPT # 55312 2. Removal of deep hardware, CPT # 78042 The assistant hairstylist was medically required as this procedure involves retraction, protection of neurovascular structures, and manipulation of multiple instruments and implants at the same time, which cannot be done without a skilled assistant hairstylist. SURGEON: Yakov Freeman CONSUMER AFFAIRS SPECIALIST: Eric Alatorre ANESTHESIA TYPE: Local By Surgeon, General LMA/ETT and Primary Nerve Block Refer to Anesthesia Record ESTIMATED BLOOD LOSS: 150 COMPLICATIONS: None Patient was transported to: PACU Patient's condition: stable Implants: [employer] Revers modular glenoid system baseplate 24 mm [employer] modular glenoid system central post 20 mm [employer] modular glenoid system peripheral locking screws 32 mm inferior, 32 mm superior, 20 mm posterior, 20 mm anterior [employer] modular glenoid system glenosphere 42 +4 mm lateralized [employer] humeral stem 135 degrees size 8 [employer] suture cup size 42 posterior offset [employer] humeral insert size 42 +3 mm Indications: Please see complete medical record for details. Findings: Largely deficient superior and posterior superior rotator cuff, significant bursitis, significant greater tuberosity abnormality bone loss, prior metal and plastic anchors interfering with shoulder replacement in the greater tuberosity, no signs of infection, high-grade partial subscapularis tearing. Biceps tenodesis likely already ruptured and it diminutive in stock in the mid bicipital groove. Procedure Description: In the operating room, general anesthesia was induced. The patient was positioned beachchair on the operating room table. All bony prominences were well-padded. Preoperative antibiotics were administered. The shoulder was prepped and draped in the usual sterile fashion for shoulder arthroplasty. The correct patient, procedure, and side of the procedure were all verified prior to incision. The deltopectoral approach was preinjected with 0.25% bupivacaine containing epinephrine and taken to the anterior shoulder adjusting slightly inferiorly and medially to provide additional space between this new incision and the old incision. Care was taken to bluntly dissect the interval between the deltoid and pectoralis major muscles and to identify the cephalic vein within its fat stripe. The the vein was mobilized laterally. Subdeltoid space and conjoined tendon were freed of significant adhesions and bursitis resected. The greater and lesser tuberosities were largely deficient with no obvious bony prominences and significant diminutive size and bone loss about what appeared to be the previous chronically failed rotator cuff repair sites. There was something that resembled the biceps tendon beneath the pectoralis major, which was diminutive and followed to about the mid bicipital groove and left alone. The uppermost margin of the pectoralis major tendon was released from the proximal humerus. The subscapularis remnant was tenotomized and freed from superior to inferior and lateral to medial while bringing the arm gradually into external rotation largely falling apart on its own with motion. Care was taken to avoid the axillary nerve by only working on the bone inferiorly and medially. The greater tuberosity was identified landmarks as best possible debrided of some residual soft tissue and marginal osteophytes. Appropriate coagulation was achieved especially interiorly. The anatomic neck was cut using a small size as template and oscillating saw with the humeral head bone brought back table in case there was a need for future bone grafting. The proximal humerus was delivered from the wound with adduction and external rotation. The proximal humeral protection plate was used to provisionally confirm suture cup and glenosphere size. Reamers were started appropriately posterior to the bicipital groove taking care to maintain in line approach with the humeral canal. Sequential reaming was done from size 5 up to size 8. Next, the broaches were sequentially used to open the proximal humerus starting with a size 5 and going up to size 8 and sunk to what seem to be the appropriate depth while maintaining approximately 30 degrees retroversion. There was good metaphyseal fit and rotational control of the proximal humerus with this size. The posterior offset guide was used to ream for the suture cup. The stem and suture cup were slightly proud, but there was space for this size stem and the template was size 9 so it was left instead of going back down to a 7 and sinking more deeply. The amount of stem proud about the greater tuberosity was likely exaggerated by the deficient greater tuberosity. The humeral head cut was again inspected and appropriately sized, there seem to be appropriate digital space between the cut and the glenoid to proceed. Attention was then turned to the glenoid and retractors were placed and a circumferential release performed using the long head of the biceps remnant to remove soft tissue about the glenoid rim. Care was taken inferiorly to work on bone only between 5 and 7:00 o'clock and bluntly elevate tissues inferiorly. The VIP guide was placed on the glenoid and used to confirm placement and trajectory of the central guidepin. The guidepin was inserted and advanced just through the far cortex ensuring adequate central fixation length. The glenoid was prepared according to cytology supervisor specifications for a standard baseplate and central post. The baseplate was impacted onto the glenoid surface. The locking guide was then used to drill and place appropriately lengthed inferior, superior, anterior, and posterior screws. The [id number] reamer was used to confirm adequate peripheral reaming. There was slight bony prominence inferiorly past the level reaming, which was gently dissected off and removed with a rongeur most inferiorly. The glenosphere was applied with the manager environmental and then impacted to engage the Mcdonnell taper. It was then locked with appropriate countersinking of the setscrew. The glenosphere was inspected and found to have good fit, appropriate positioning, and no soft tissue or bony impingement except for the slightest amount of bone still present most inferiorly which was left to avoid the axillary nerve and resecting bone down the scapular neck. Attention was then turned back to the proximal humerus. The humeral trial cup was connected. Trialing was commenced with +3 mm liner. The shoulder was reduced and taken through range of motion and showed good stability and despite the prominence of the humeral component there was appropriate tension on the deltoid and conjoined tension so no downsizing and additional proximal humerus preparation was done. The trial components were removed from the proximal humerus. The wound was copiously irrigated with normal saline. The humeral component and suture cup were impacted into place. The trial liner was added, and the shoulder was reduced and range of motion, stability, and tension confirmed to be appropriate. The final liner was then connected, and range of motion, stability, and tension confirmed. The shoulder was copiously irrigated with Betadine and normal saline. Vancomycin powder was distributed deeply about the shoulder and through subcutaneous tissues. The deltopectoral interval was well approximated with 2-0 Monocryl. Subcutaneous tissue was irrigated then closed using 2-0 Monocryl in a buried interrupted fashion. Skin was closed using 3-0 Monocryl in a buried subcuticular fashion. Skin glue was applied to the incision. A silver impregnated bandage was placed over the incision. The extremity was placed into a shoulder immobilizer. The patient awoke from anesthesia without complication and was taken to the recovery room in stable condition.
[2023-10-31] MEDS: ceFAZolin 3,000 MG in Normal Saline 100 ML 200 MG IVPB (08:16)
[2023-10-31] MEDS: TRANEXAMIC ACID/SOD. CHL. 1,000 MG/100 ML BAG 600 MG IVPB (08:24)
--- NOTE | 2023-10-31 08:25 | W.ANESNERVE ---
Nerve Block Single Injection Procedure Date and Time Date Performed: 10/31/23 Procedure Start: 07:30 Location Where Procedure Performed Procedure Location: Day Surgery Unit Reason Performed: Postoperative Analgesia Requesting Provider: Yakov Freeman Timeout Performed Timeout Performed: Yes Monitoring Used ECG, Blood Pressure and SpO2 Sterility Sterility: Hand Hygiene, Surgical Cap, Surgical Mask, Sterile Gloves, Sterile Drape/Sheet and Chlorhexidine Sedation Given During Procedure Sedation Given (Indicate Dose Given): Versed IV Dose:: 1 mg Patient Mental Status Patient Mental Status: Awake Nerve Block 1st Nerve Block: Laterality: Right Block Type: Interscalene Ultrasound Image Saved?: Yes Needle / Catheter Used: 100mm SonoPlex II Local Anesthetic Bolus (Indicate Dose Given): Lidocaine used for local infiltration of skin, Bupivacaine 0.5% Dose:: 10 mL and Exparel Dose:: 10 mL Additives (Indicate Dose Given): None Ultrasound: Sterile probe cover and gel used Nerve Stimulator: Supplement to Ultrasound use and No twitch or parasthesia noted < 0.5 mA Paresthesia: None Procedure Tolerated: No Complications Procedure Outcome: Successful Performed By: Tino Brand
--- NOTE | 2023-10-31 08:26 | W.ANESVAS ---
Arterial Line Placement Date Performed: 10/31/23 Procedure Time: 07:50 Procedure Location: Operating Room Requesting Provider: Angelica Longo Timeout Performed: No Sedation Given (Indicate Dose Given): No Sedation given Patient Mental Status: Performed under general anesthesia Sterility: Hand Hygiene, Surgical Cap, Surgical Mask, Sterile Gloves, Sterile Drape/Sheet and Chlorhexidine Laterality: Left Insertion Site: Radial Arterial Line Catheter: 20G Arrow Arterial Line Procedure: Catheter placed without resistance Dressing: Tegaderm Applied and Mastisol Used Ultrasound: Sterile probe cover and gel used Ultrasound Image Saved?: Yes Number of Attempts (See previous attempts in note section): 1 Procedure Tolerated: No Complications Procedure Outcome: Successful Performed By: Tino Brand
[2023-10-31] MEDS: Bupivacaine 0.25% Pres-Free W/EPI 30 ML VIAL (08:53)
--- NOTE | 2023-10-31 11:00 | DI.RAD_ITS ---
Exam(s) XR SHOULDER RT COMPLETE 2+V EXAM: XR SHOULDER RT COMPLETE 2+V CLINICAL HISTORY: Shoulder Arthritis. TECHNIQUE: 2D digital imaging was performed. COMPARISON: CR XR SHOULDER LT COMPLETE 2+V from 11/20/2022 FINDINGS: Two views Satisfactory position alignment of the components of the newly placed reverse prosthesis. No fractur e or loosening evident. IMPRESSION: Satisfactory postop appearance DATA REPOSITORY: RADIATION DOSE DELIVERED:
[2023-10-31] MEDS: ceFAZolin 2 GM/50 ML BAG IVPB (12:31)
[2023-10-31] MEDS: Lactobacillus Acidophilus CAP 1 CAP PO (12:38)
--- NOTE | 2023-10-31 13:06 | W.ANESPOSTOP ---
Postoperative Evaluation Date, Time and Location Date Performed: 10/31/23 Time Performed: 13:06 Patient Location: Day Surgery Unit Vital Signs Most Recent Imported Vital Signs: Most Recent Vital Signs Temp Pulse Resp BP Pulse Ox 36.6 C 80 16 124/47 L 93 10/31/23 12:44 10/31/23 12:44 10/31/23 12:44 10/31/23 12:44 10/31/23 12:44 Pain Score Most Recent Pain Score: Most Recent Pain Score Pain Level 0 10/31/23 12:44 Assessment Mental Status: Awake (Alert & Oriented to Patient Baseline) Airway and Respiratory Function: Patent airway with normal (patient baseline) respiratory exam Cardiovascular Function: Hemodynamically Stable Hydration Status: Adequately Hydrated Nausea & Vomiting: No Nausea or Vomiting Pain: Pt. Denies Any Pain Peripheral Nerve Block: Regional nerve block not resolved at time of post operative discharge
== END 2023-10-31 13:46 | disposition home or self-care (01) ==
PROVIDERS: PCP Nurse Practitioner Family; Visit Provider Student in an Organized Health Care Education/Training Program
PROC: (CPT 23472; principal; 2023-10-31 07:30)
DX: M19.011 Primary osteoarthritis, right shoulder (principal); M75.101 Unspecified rotator cuff tear or rupture of right shoulder, not specified as traumatic; M75.51 Bursitis of right shoulder; E11.9 Type 2 diabetes mellitus without complications; I10 Essential (primary) hypertension
CPT/HCPCS: 23472; 20680; 76942; 73030; 87070; 87075; 87205; C9290; J0665; J0690; J1100; J1805; J2001; J2250; J2371; J2405; J2598; J2704; J3370

== ENCOUNTER 2023-11-13 11:04 | Outpatient (CLI) | payer MEDICARE, SELFPAY ==
--- NOTE | 2023-11-13 09:15 | DI.RAD_ITS ---
Exam(s) XR SHOULDER RT COMPLETE 2+V EXAM: XR SHOULDER RT COMPLETE 2+V CLINICAL HISTORY: postop. TECHNIQUE: 2D digital imaging was performed. Five views. COMPARISON: CR XR SHOULDER RT COMPLETE 2+V from 10/31/2023 FINDINGS: BONES: No acute fracture is present. No bony destructive lesion is seen. JOINTS: No dislocation present. Stable appearance of reverse shoulder prosthesis. SOFT TISSUE: Normal. IMPRESSION: Stable appearance of reverse shoulder prosthesis. DATA REPOSITORY: RADIATION DOSE DELIVERED:
== END 2023-11-13 11:05 | disposition home or self-care (01) ==
LOC: DIORS 11:05
PROVIDERS: PCP Nurse Practitioner Family; Visit Provider Student in an Organized Health Care Education/Training Program
DX: Z47.1 Aftercare following joint replacement surgery; Z96.611 Presence of right artificial shoulder joint
CPT/HCPCS: 73030

== ENCOUNTER → 2023-12-25 08:55 | Outpatient (BNVA) | payer MEDICARE, SELFPAY | PROVIDERS: PCP Nurse Practitioner Family; Referring Provider Nurse Practitioner Family; Visit Provider Student in an Organized Health Care Education/Training Program | DX: Z47.1 Aftercare following joint replacement surgery (principal); Z96.611 Presence of right artificial shoulder joint ==

== ENCOUNTER 2024-02-26 10:55 | Outpatient (CLI) | payer MEDICARE, SELFPAY ==
--- NOTE | 2024-02-26 09:41 | DI.RAD_ITS ---
Exam(s) XR SHOULDER RT COMPLETE 2+V EXAM: XR SHOULDER RT COMPLETE 2+V CLINICAL HISTORY: F/U RIGHT RTSA. TECHNIQUE: 2D digital imaging was performed. Five views. COMPARISON: CR XR SHOULDER RT COMPLETE 2+V from 11/13/2023 FINDINGS: Stable alignment of reverse shoulder prosthesis. No abnormal bony lucencies. Chronic deformities of the distal clavicle and acromion. IMPRESSION: Stable alignment of shoulder prosthesis. DATA REPOSITORY: RADIATION DOSE DELIVERED:
== END 2024-02-26 10:56 | disposition home or self-care (01) ==
LOC: DIORS 10:55
PROVIDERS: PCP Nurse Practitioner Family; Referring Provider Nurse Practitioner Family; Visit Provider Student in an Organized Health Care Education/Training Program
DX: M12.811 Other specific arthropathies, not elsewhere classified, right shoulder (principal)
CPT/HCPCS: 99213; 73030

== ENCOUNTER 2024-03-09 01:07 | Outpatient (CLI) | payer MEDICARE, SELFPAY ==
--- NOTE | 2024-03-09 06:15 | DI.CT_ITS ---
Exam(s) CT UPPER EXTREMITY LT WO EXAM: CT UPPER EXTREMITY LT WO CLINICAL HISTORY: SURGICAL PLANNING,OA LT SHOULDER,M19.012. TECHNIQUE: Imaging Protocol: Axial computed tomography images with coronal and sagittal reformatted images were created and reviewed. COMPARISON: CR XR SHOULDER LT COMPLETE 2+V from 11/20/2022 FINDINGS: This examination was performed for pre-surgical planning. Note is made of some patient motion artifa ct. Bones: The osseous structures and articular surfaces are intact. There again seen 3 orthopedic scre ws in the humeral head. Degenerative and/or postsurgical changes are seen at the acromioclavicular j oint. Well corticated osseous densities are seen around the AC joint which are unchanged and are chr onic. There is a well corticated osseous density seen at the posterior superior aspect of the glenoi d which appears chronic. There is mild superior subluxation of the humeral head relative to the rebecca oid. This can be seen with chronic rotator cuff tear. No cellulitic or osteomyelitic changes are id entified. There are degenerative changes seen at the glenohumeral joint. No lytic or sclerotic lesi ons are identified. Soft Tissues: Coronary artery calcifications are present. IMPRESSION: Postsurgical and degenerative changes seen of the left shoulder. RADIATION DOSE DELIVERED: 350mGy.cm Total DLP 350mGy.cm Total DLP DATA REPOSITORY: All CT scans at this facility are submitted to the National Radiology Data Registry (NRDR) Dose Index Registry (DIR) with the [employer] ([employer]). RADIATION OPTIMIZATION: All CT scans at this facility use at least one of these dose optimization te chniques: automated exposure control; mA and/or kV adjustment per patient size (includes targeted exa ms where dose is matched to clinical indication); or iterative reconstruction.
== END 2024-03-09 01:27 ==
LOC: DI 01:07
PROVIDERS: PCP Nurse Practitioner Family; Visit Provider Student in an Organized Health Care Education/Training Program
DX: M19.012 Primary osteoarthritis, left shoulder (principal)
CPT/HCPCS: 73200

== ENCOUNTER → 2024-03-11 09:53 | Outpatient (BNVA) | payer MEDICARE, SELFPAY | PROVIDERS: PCP Nurse Practitioner Family; Referring Provider Nurse Practitioner Family; Visit Provider Student in an Organized Health Care Education/Training Program | DX: M75.102 Unspecified rotator cuff tear or rupture of left shoulder, not specified as traumatic (principal); M12.812 Other specific arthropathies, not elsewhere classified, left shoulder | CPT/HCPCS: 99214 ==

== ENCOUNTER 2024-03-17 02:31 | Outpatient (CLI) | payer MEDICARE, SELFPAY ==
[2024-03-17 12:46] LABS: Anion Gap 12.8 mmol/L (3-11); BUN 12 mg/dL (7-18); CO2 27.2 mmol/L (21.0-32.0); CREATININE 1.2 mg/dL (0.70-1.30); Calcium 9.6 mg/dL (8.5-10.1); Calculated LDL 64 mg/dL (<100); Chloride 106 mmol/L (98-107); Cholesterol 132 mg/dL (<200); Estimated GFR 64.25 (mL/min/1.73m2); Glucose 166 mg/dL (74-106); HDL Cholesterol 53 mg/dL (40-60); Potassium 4.5 mmol/L (3.5-5.1); Sodium 146 mmol/L (136-145); Triglyceride 77 mg/dL (<150)
[2024-03-17 22:13] LABS: PSA, Screening 0.3 ng/mL (<=6.5)
== END 2024-03-17 02:32 | disposition home or self-care (01) ==
LOC: LOS 02:31
PROVIDERS: PCP Nurse Practitioner Family; Visit Provider Nurse Practitioner Family
DX: E11.65 Type 2 diabetes mellitus with hyperglycemia; I10 Essential (primary) hypertension; E66.9 Obesity, unspecified; Z12.5 Encounter for screening for malignant neoplasm of prostate
CPT/HCPCS: 36415; 80048; 80061; 84153

== ENCOUNTER 2024-05-01 06:06 | Day surgery (SDC) | payer MEDICARE, SELFPAY ==
--- NOTE | 2024-04-30 14:34 | ANES.PREOP_ITS ---
General Info Date of Service Date Performed: 05/01/24 Height: 5 ft 8.25 in Weight: 105.687 kg Body Mass Index (BMI): 35.2 Surgical Procedure: Operation Date: 05/01/24 07:40 Proposed Procedure Side Surgeon p Shoulder Reverse Total Arthroplasty, Biceps Tenodesis, Removal of Hardware Left Yakov Freeman MD Meds Allergies and Home Medications Allergies Allergy/AdvReac Type Severity Reaction Status Date / Time latex Allergy Severe skin mir Verified 05/01/24 06:23 and infection Home Medication ?Medication ?Instructions ?Recorded flash glucose scanning reader #1 ea 09/06/22 (FreeStyle Cesar 2 [place]) lisinopril 30 mg tablet 30 mg PO DAILY #90 tabs 09/12/23 blood-glucose sensor (FreeStyle #1 ea 10/07/23 Cesar 3 Sensor device) amlodipine 5 mg tablet 5 mg PO DAILY #90 tabs 10/14/23 blood sugar diagnostic #100 ea 10/14/23 blood sugar diagnostic (Blood #100 ea 10/14/23 Glucose Test strips) blood-glucose meter #1 ea 10/14/23 lancets #100 ea 10/14/23 pen needle, diabetic 32 gauge x #90 ea 11/14/23 (1st Tier Unifine Pentips) metformin 1,000 mg tablet 1,000 mg PO BID #180 tab-caps 12/09/23 semaglutide 0.25 mg or 0.5 mg (2 0.25 mg (0.368 mL) subcut QWEEK #3 03/16/24 mg/3 mL) subcutaneous pen injector mL insulin glargine-yfgn 100 unit/mL 45 unit subcut QPM 04/30/24 (3 mL) subcutaneous pen L. acidophilus,casei,rhamnosus 50 1 cap PO DAILY 14 days #30 caps 05/01/24 billion cell capsule,delayed release (Bio-K plus) amoxicillin 500 mg capsule 500 mg PO TID prevent infection 30 05/01/24 days #90 caps naproxen 250 mg tablet 250 mg PO BID PRN moderate pain 05/01/24 and swelling 14 days #28 tabs omeprazole 40 mg capsule,delayed 40 mg PO DAILY take while using 05/01/24 release naproxen #14 caps oxycodone 5 mg tablet 5 - 10 mg (1 - 2 x 5 mg) PO .q4-6h 05/01/24 PRN severe pain #9 tabs Current Visit Medications: Current Medications Generic Name Dose Route Start Last Admin Trade Name Yamileth PRN Reason Stop Dose Admin Ringer's Solution 1,000 mls @ 30 mls/hr 05/01/24 06:00 IV 05/01/24 23:59 INFUSION RADHA Cefazolin Sodium 3,000 mg/ 100 mls @ 200 mls/hr 05/01/24 06:00 Sodium Chloride IV 05/01/24 23:59 PREOP RADHA Tranexamic Acid/Sodium Chloride 1,000 mg in 100 mls @ 600 mls/hr 05/01/24 06:00 IVPB 05/01/24 23:59 PREOP RADHA IV Miscellaneous Supplies 1 each 05/01/24 06:00 Iv Access IV 05/01/24 23:59 DIRECTED RADHA Sodium Chloride 0 ml 05/01/24 06:00 Normal Saline Flush 10 Ml Syr IV 05/01/24 23:59 PRN PRN Sodium Chloride 0 ml 05/01/24 06:00 Normal Saline 10 Ml Vial IJ 05/01/24 23:59 DIRECTED PRN Sterile Water 0 ml 05/01/24 06:00 Water,Injection,Sterile 10 Ml Vial IJ 05/01/24 23:59 DIRECTED PRN PFSH Active Problems Active Problems: Problem Status Onset Code Left rotator cuff tear arthropathy Acute M75.102, M12.812 Fluttering heart Acute I49.8 Branch retinal vein occlusion of left eye Acute H34.8322 Rotator cuff arthropathy of right shoulder Acute M12.811 Primary osteoarthritis of right knee Acute M17.11 Allergies Acute T78.40XA Hypertension Acute I10 Obesity Acute 10/21/13 E66.9 Varicose veins of lower extremity Acute I83.90 Tubular adenoma of colon Acute D12.6 Diabetes type 2, uncontrolled Acute E11.65 Medical History Medical History Arthritis of both glenohumeral joints bilateral 40 mg subacromial corticosteroid injections 11/20/22 Diverticulosis Hydronephrosis Diastasis recti (09/05/15) Kidney stone (03/14/07) right hydronephrosis-stone removed-[place] right hydro - stone removed - [place] 2012 Right hydro - stone voided 2018 Atrophy of left kidney Surgical History Surgical History S/P bypass gastrojejunostomy 04/11/[address] [facility] [place] [facility]. -hb S/P uvulopalatopharyngoplasty right shoulder surgery Rotator Cuff Repair left Open Carpal Tunnel release right Nasal septoplasty Repair of inguinal hernia Tobacco Smoking/Tobacco Use Status: Never Passive smoking exposure: Yes Second hand exposure: Yes Alcohol Alcohol Intake: current Alcohol intake frequency: holidays/special occasions only Alcohol type: beer Substance Use Substance use: Never Substance use type: does not use Vital Signs and Lab Results Vital Signs Most Recent Vital Signs in EMR: Temp Pulse Resp BP Pulse Ox 37 C 81 16 177/103 H 97 05/01/24 06:26 05/01/24 06:26 05/01/24 06:26 05/01/24 06:26 05/01/24 06:26 Lab Results Blood Type / Crossmatch: No Data to Display Complete Blood Count: No Data to Display Complete Metabolic Panel: Hemoglobin A1c 7.2 % (4.5-5.7) H 04/20/24 08:14 Liver Function Panel: No Data to Display Coagulation Panel: No Data to Display Cardiac Panel: No Data to Display Arterial Blood Gas: No Data to Display Venous Blood Gas: No Data to Display Pancreas Panel: No Data to Display Thyroid Panel: No Data to Display Infectious Disease: No Data to Display Blood Cultures: No Data to Display Toxicology Panel: No Data to Display Imaging and Studies Imaging and Studies Study information below may be from another EMR and interpreted by another provider. Please see original notes in EMR for more complete details. Carotid Artery Summary:: 06/27/23: IMPRESSION: 1. There is plaque evident in both carotid bulbs without associated elevated velocities, indicating the amount of stenosis is less than 50 percent 2. Antegrade flow is demonstrated both vertebral arteries. Anesthesia Assessment and Plan Anesthesia History Personal History: No History of Anesthesia Complications Family History: No Family History of Anesthesia Complications Exercise Tolerance Exercise Tolerance: Metabolic Equivalents>4 Cardiac & Pulmonary Exam Cardiac Exam: Normal S1/S2 Heart Sounds Pulmonary Exam: Clear Bilateral Breath Sounds Implantable Cardiac Device Does patient have a Pacemaker or an ICD?: No Airway Exam Known Difficult Airway: No Mallampati Class: 2 Mouth Opening: Normal (> 3cm) Thyromental Distance: Greater than 3 cm Neck Range of Motion: Full ROM Neck Circumference: Normal Teeth Condition: Removable Dentures/Plates Upper ASA Classification ASA Score: ASA 3 Emergency Case?: No NPO Status NPO Status: NPO Clears >2 hours, Solids >8 hours Anesthesia Plan Resuscitation Status: Full Code Anesthesia Technique: General Anesthesia Airway Planned: Endotracheal Tube Pain Management: Surgeon and patient request nerve block Monitors Used: Standard Monitors and Arterial Line (+/-) Preoperative Comments:: 73 yo male for total shoulder. Sig PMHx: HTN (amlodipine, lisinopril. BP today elevated, historically elevated also - does not routinely check his BP at home), DM2 (metformin, glargine, semaglutide. 7.2 last A1c), retinal artery occlusion (L). s/p GBP. never smoker, Occ EtOH. Can go up stairs without chest pain or major shortness of breath. Previous Anes: - shoulder, glide 3 grade 1, easy mask. Art line for recent retinal artery occlusion, NE for BP management. ISB with 1 midaz, 10 of 0.5 and 10 exparel, 0/10 noted on post op. block lasted roughly 1.5 days. - colo, prop, natural airway, no issues Discussed risk associated with elevated BP and his history of retinal vein occlusion he is at elevated risk of neurologic complications. Discussed potential art line if needed.
[2024-05-01] VITALS (45 sets, daily range): BP systolic 103–187; BP diastolic 63–108; PULSE 76–91; RESP 12–29; TEMP 36.1–37; O2SAT 90–98; BMI 35.2
--- NOTE | 2024-05-01 07:16 | W.PM.DSUDISC ---
Date of service: 05/01/24 Discharge Plan Disposition Patient Disposition: Home Condition: Stable Discharge Details Attending Provider: Yakov Freeman Primary Care Provider: Layla Henry Meds and New Rx's Prescriptions: New oxycodone 5 mg tablet 5 - 10 mg PO .q4-6h MDD 30 mg PRN (Reason: severe pain) Qty: 9 0RF amoxicillin 500 mg capsule 500 mg PO TID 30 Days Qty: 90 0RF naproxen 250 mg tablet 250 mg PO BID PRN (Reason: moderate pain and swelling) 14 Days Qty: 28 0RF Rx Instructions: take with a meal Bio-K plus 50 billion cell capsule,delayed release(DR/EC) 1 cap PO DAILY 14 Days Qty: 30 0RF Rx Instructions: Use while on antibiotic omeprazole 40 mg capsule,delayed release(DR/EC) 40 mg PO DAILY Qty: 14 0RF Continued amlodipine 5 mg tablet 5 mg PO DAILY Qty: 90 3RF (DME) lancets Misc See Rx Instructions .MEDSUPPLY Qty: 100 3RF Rx Instructions: As directed to check daily blood glucose. No insulin. Dispense covered brand. Dx: E11.9 to maintain HbA1c less than 7%. (DME) blood-glucose meter Misc See Rx Instructions .MEDSUPPLY Qty: 1 0RF Rx Instructions: As directed to check three times daily, blood glucose and PRN. On insulin. Dispense covered brand. Dx: E11.9 to maintain HbA1c less than 7%. (DME) Blood Glucose Test Strip See Rx Instructions .MEDSUPPLY Qty: 100 3RF Rx Instructions: As directed to check three times daily blood glucose, and PRN. On insulin. Dispense covered brand. Dx: E11.9 to maintain HbA1c less than 7%. (DME) blood sugar diagnostic Strip See Rx Instructions .ROUTE .MEDSUPPLY Qty: 100 3RF Rx Instructions: As directed to check three times daily blood glucose, and PRN. On insulin. Dispense covered brand. Dx: E11.9 to maintain HbA1c less than 7%. (DME) FreeStyle Cesar [facility] Misc See Rx Instructions .ROUTE .MEDSUPPLY Qty: 1 0RF Rx Instructions: As directed lisinopril 30 mg tablet 30 mg PO DAILY Qty: 90 3RF (DME) FreeStyle Cesar 3 Sensor Device See Rx Instructions .Route Qty: 1 11RF Rx Instructions: test 4 times daily. (DME) pen needle, diabetic [1st Tier Unifine Pentips] 32 gauge x 5/32 needle See Rx Instructions .ROUTE .MEDSUPPLY Qty: 90 4RF Rx Instructions: once daily metformin 1,000 mg tablet 1,000 mg PO BID Qty: 180 4RF semaglutide 0.25 mg or 0.5 mg (2 mg/3 mL) pen injector 0.25 mg subcut QWEEK Qty: 3 1RF Rx Instructions: for 4 weeks insulin glargine-yfgn 100 unit/mL (3 mL) insulin pen 45 unit subcut QPM Discharge Instructions Additional Instructions: Surgery: Left reverse total shoulder arthroplasty (constrained liner) and removal of hardware Activity: Do not lift anything heavier than a coffee. You should keep your arm at your side in a relatively neutral position at all times except for gentle range of motion exercises, physical therapy, and essential activities. You should use the sling whenever you are out of the house. At home it is best to remove the sling and rest the arm on a pillow at your side or support the operative side with your other hand. A physical therapy prescription will be sent electronically to start in about 3 weeks. Standard Reverse TSA Protocol. Prescriptions: Amoxicillin 500 mg take 1 three times each day for 30 days to prevent infection Bio-K Plus 50 billion take 1 each day to prevent GI issues while on antibiotic (or use any other probiotic or daily yogurt) Naproxen 250 mg take 1 every 12 hours with a meal as needed for moderate pain, do not take for more than 2 weeks. Omeprazole 40 mg take 1 daily for 14 days to protect somach from NSAID (naproxen) Oxycodone 5 mg take 1-2 every 4-6 hours as needed for severe pain You may use hgap-bev-zhuzafs Tylenol (acetaminophen) as needed for mild pain. These pain medications may be taken all at once or in different combinations as needed. Also, recommend Colace (docusate) as a stool softener as surgery and pain medicine cause constipation. You may try rwtb-lxe-[id number] diphenhydramine (Benadryl) 25-50 mg nightly as a sleep aid Dressings: Leave dressing in place until follow-up. Keep clean and dry at all times. No showers please. Follow-up: 10-[address] Freeman You may take off the leg compression stockings this evening at home. You may also leave them on a few days longer if you have a history of leg swelling or edema. Please call the office during business hours with any questions or concerns. Let us know right away if you develop any redness, drainage, fevers, chest pain, or trouble breathing. Do not drink alcohol or drive for at least 24 hours after anesthesia. Stand Alone Forms: Anesthesia Discharge Inst., [place].Nerve Block Instructions, [place] ([facility]) Referrals: Yakov Freeman MD [ [facility] STAFF PHYSICIAN] - 05/13/24 10:30 am Discharge Orders Discharge Orders: Discharge Order (Routine); Ordered 05/01/24 Ordered By: Mirian Romero DS: Diagnosis Discharge Diagnosis (1) Left rotator cuff tear arthropathy: Status: Acute (2) Retained orthopedic hardware: Status: Acute
[2024-05-01] MEDS: Lactated Ringers 1,000 ML 30 ML IV (07:25)
[2024-05-01] MEDS: ceFAZolin 3,000 MG in Normal Saline 100 ML 200 MG IV (08:04)
[2024-05-01] MEDS: TRANEXAMIC ACID/SOD. CHL. 1,000 MG/100 ML BAG 600 MG IVPB (08:13)
[2024-05-01] MEDS: Bupivacaine 0.25% Pres-Free W/EPI 30 ML VIAL (08:26)
--- NOTE | 2024-05-01 08:40 | W.ANESVAS ---
Midline Placement Date Performed: 05/01/24 Procedure Time: 07:20 Requesting Provider: Yakov Freeman Procedure Location: Day Surgery Unit Sedation Given (Indicate Dose Given): No Sedation given Patient Mental Status: Awake Sterility: Hand Hygiene, Surgical Cap and Chlorhexidine Laterality: Right Insertion Site: Other (forearm) Midline Device: PowerGlide Pro 20G Catheter Length: 10 cm Midline Procedure Procedure: 1% Lidocaine to skin and subcutaneous tissue with 25g needle and Catheter placed without resistance Dressing: Tegaderm Applied and Statlock Applied Blood Return: Present Flushes: Easily Ultrasound: Sterile probe cover and gel used (under nerve block US order/image) Ultrasound Image Saved?: Yes Number of Attempts (See previous attempts in note section): 1 Procedure Tolerated: No Complications Procedure Outcome: Successful Procedure Comment:: multiple previous IV attempts without success. Performed By: Tino Brand
--- NOTE | 2024-05-01 08:42 | W.ANESNERVE ---
Nerve Block Single Injection Procedure Date and Time Date Performed: 05/01/24 Procedure Start: 07:28 Location Where Procedure Performed Procedure Location: Day Surgery Unit Reason Performed: Postoperative Analgesia Requesting Provider: Yakov Freeman Timeout Performed Timeout Performed: Yes Monitoring Used ECG, Blood Pressure and SpO2 Sterility Sterility: Hand Hygiene, Surgical Cap, Surgical Mask, Sterile Gloves and Chlorhexidine Sedation Given During Procedure Sedation Given (Indicate Dose Given): Propofol IV Dose:: 20 mg Patient Mental Status Patient Mental Status: Sedate with meaningful communication Nerve Block 1st Nerve Block: Laterality: Left Block Type: Interscalene Ultrasound Image Saved?: Yes Needle / Catheter Used: 100mm SonoPlex II Local Anesthetic Bolus (Indicate Dose Given): Lidocaine used for local infiltration of skin, Injected in 3-5ml increments after negative blood aspiration, Bupivacaine 0.5% Dose:: 10 mL and Exparel Dose:: 10 mL Additives (Indicate Dose Given): None Ultrasound: Sterile probe cover and gel used Nerve Stimulator: Supplement to Ultrasound use and No twitch or parasthesia noted < 0.5 mA Paresthesia: None Procedure Tolerated: No Complications Procedure Outcome: Successful Performed By: Tino Brand
--- NOTE | 2024-05-01 11:16 | ROE_ITS ---
Operative Note Operative Note PRE-OP DIAGNOSIS: Left: 1. Rotator cuff arthropathy 2. Retained proximal humerus hardware POST-OP DIAGNOSIS: other Left: 1. Rotator cuff arthropathy 2. Retained proximal humerus hardware 3. Proximal biceps rupture PROCEDURE: Left 1. Reverse total shoulder arthroplasty, CPT # 29346 2. Removal of deep hardware, CPT # 00845: 3 metal screws The occupational therapist assistants was medically required as this procedure involves retraction, protection of neurovascular structures, and manipulation of multiple instruments and implants at the same time, which cannot be done without a skilled occupational therapist assistants. SURGEON: Yakov Freeman CHEMICAL PACKAGER: Mirian Romero ANESTHESIA TYPE: Local By Surgeon, General LMA/ETT and Primary Nerve Block Refer to Anesthesia Record ESTIMATED BLOOD LOSS: 150 COMPLICATIONS: None Patient was transported to: PACU Patient's condition: stable Implants: [employer] modular glenoid system baseplate 24 mm +2 Lat [employer] modular glenoid system central post 20 mm [employer] modular glenoid system peripheral locking screws 32 mm inferior, 32 mm superior, 16 mm posterior, 16 mm anterior [employer] modular glenoid system glenosphere 42 +4 mm lateralized [employer] humeral stem 135 degrees size 7 [employer] suture cup size 39 posterior offset [employer] humeral insert size 39 +3 mm/ combo 42 constrained Indications: Please see complete medical record for details. Findings: Significant bursitis and nearly completely deficient rotator cuff with small remnant inferior subscapularis and far posterior remnant teres. Prominent 2 of 3 suture anchors at a greater tuberosity bone. Retained permanent suture material about the greater tuberosity and also loose and incarcerated in the glenohumeral joint. Superior humeral migration instability. Proximal biceps rupture. Procedure Description: In the operating room, general anesthesia was induced. The patient was positioned beachchair on the operating room table. All bony prominences were well-padded. Preoperative antibiotics were administered. The shoulder was prepped and draped in the usual sterile fashion for shoulder arthroplasty. The correct patient, procedure, and side of the procedure were all verified prior to incision. The deltopectoral approach was preinjected with 0.25% bupivacaine containing epinephrine and taken to the anterior shoulder. Care was taken to bluntly dissect the interval between the deltoid and pectoralis major muscles and to identify the cephalic vein within its fat stripe. The the vein was mobilized laterally. Subdeltoid space and conjoined tendon were freed of adhesions. The long head of the biceps tendon was identified just lateral to the lesser tuberosity. The uppermost margin of the pectoralis major tendon was released from the proximal humerus. A long head of the biceps tendon was noted to be ruptured and already adhesed to the proximal humerus. The small subscapularis remnant was removed from the inferior lesser tuberosity and capsule released working inferiorly on humeral head bone bringing the arm into external rotation. The proximal humerus was largely devoid of any supraspinatus or infraspinatus tendon. Appropriate coagulation was achieved especially interiorly. Specimens were then obtained given prior failed surgery. A large piece of bursitis was removed and sent as tissue sample #1. 2 of the 3 metallic corkscrew suture anchors were fairly prominent and easily grafts untwisted and removed entirely. These were sent as specimens #2 and 3 hardware. Permanent suture material was also removed from the greater tuberosity and some other large pieces and from incarcerated in the joint and were sent as #4. The last anchor was removed after uncovering a small bony remnant and sent as #5. Once the metallic anchors were out of the way, the anatomic neck was cut using an oscillating saw with the humeral head bone brought back table in case there was a need for future bone grafting. The proximal humerus was delivered from the wound with adduction and external rotation. The proximal humeral protection plate was used to provisionally confirm suture cup and glenosphere size. Reamers were started appropriately posterior to the bicipital groove taking care to maintain in line approach with the humeral canal. Sequential reaming was done from size 5 up to size 8. Next, the broaches were sequentially used to open the proximal humerus starting with a size 5 and going up to size 8 however similar to the other side had difficulty sinking to the calcar and wanted to sit proud due to proximal humerus naturally. The 8 was left while maintaining approximately 25 degrees retroversion. There was good metaphyseal fit and rotational control of the proximal humerus with this size. The posterior offset guide was used to ream for the suture cup. Attention was then turned to the glenoid and retractors were placed and a circumferential release performed using the long head of the biceps remnant to remove soft tissue about the glenoid rim. Care was taken inferiorly to work on bone only between 5 and 7:00 o'clock and bluntly elevate tissues inferiorly. The VIP guide was placed on the glenoid and used to confirm placement and trajectory of the central guidepin. The guidepin was inserted and advanced just through the far cortex ensuring adequate central fixation length. The glenoid was prepared according to supervisor hot dip plating specifications for a standard baseplate and central post. The baseplate was impacted onto the glenoid surface. The locking guide was then used to drill and place appropriately lengthed inferior, superior, anterior, and posterior screws. The fing-[id number] reamer was used to confirm adequate peripheral reaming. The glenosphere was applied with the professional engineer and then impacted to engage the Mcdonnell taper. It was then locked with appropriate countersinking of the setscrew. The glenosphere was inspected and found to have good fit, appropriate positioning, and no soft tissue or bony impingement. Attention was then turned back to the proximal humerus. The humeral trial cup was connected. Trialing was commenced with +3 mm liner. The construct sat rather proud not totally unexpected from the proximal humerus and was too long and not appropriate for reduction or trialing. The size 8 broach was then removed, some additional bone removed from the proximal humerus and the size 7 broach send deeper with good fit. The posterior connector and suture cup reamer were then used again. The humeral trial cup was connected and although still prominent, not overly proud especially considering similar anatomy was encountered on the other side. The shoulder was reduced and taken through range of motion. It demonstrated good stability and appropriate tension on the deltoid and conjoined tension. The trial components were removed from the proximal humerus. The wound was copiously irrigated with normal saline. The the proximal humeral stem and suture cup were assembled and brought over the proximal humerus. A small amount of vancomycin powder was distributed in the proximal humerus. The humeral component and suture cup were impacted into place. The trial liner was added, and the shoulder was reduced and range of motion, stability, and tension confirmed to be appropriate. The final liner was then connected, constrained chosen due to chronic superior instability and devoid rotator cuff, and range of motion, stability, and tension confirmed to be excellent. The shoulder was copiously irrigated with Betadine and normal saline. Vancomycin powder was distributed deeply about the shoulder and through subcutaneous tissues. The arm was placed in about 30 degrees of external rotation. The deltopectoral interval was approximated burying in the vein with 2-0 Monocryl. Subcutaneous tissue was irrigated then closed using 2-0 Monocryl in a buried interrupted fashion. Skin was closed using 3-0 Monocryl in a buried subcuticular fashion. Skin glue was applied to the incision. A silver impregnated bandage was placed over the incision. The extremity was placed into a shoulder immobilizer. The patient awoke from anesthesia without complication and was taken to the recovery room in stable condition. Date of Procedure: 05/01/24
--- NOTE | 2024-05-01 11:30 | DI.RAD_ITS ---
Exam(s) XR SHOULDER LT COMPLETE 2+V EXAM: XR SHOULDER LT COMPLETE 2+V CLINICAL HISTORY: Post-op. TECHNIQUE: 2D digital imaging was performed. Three views. Portable. COMPARISON: CT CT UPPER EXTREMITY LT WO from 03/09/2024 FINDINGS: Bones: A reverse shoulder prosthesis has been placed. The alignment appears satisfactory. SOFT TISSUE: Residual postsurgical air. IMPRESSION: Unremarkable radiographs of the left shoulder. DATA REPOSITORY: RADIATION DOSE DELIVERED:
[2024-05-01] MEDS: ceFAZolin 1 GM/50 ML BAG IVPB (11:54)
--- NOTE | 2024-05-01 11:56 | W.ANESPOSTOP ---
Postoperative Evaluation Date, Time and Location Date Performed: 05/01/24 Time Performed: 11:56 Patient Location: PACU Vital Signs Most Recent Imported Vital Signs: Most Recent Vital Signs Temp Pulse Resp BP Pulse Ox 36.4 C L 85 18 114/71 93 05/01/24 11:33 05/01/24 11:40 05/01/24 11:40 05/01/24 11:40 05/01/24 11:40 Pain Score Most Recent Pain Score: Most Recent Pain Score Pain Level 0 05/01/24 11:33 Assessment Mental Status: Awake (Alert & Oriented to Patient Baseline) Airway and Respiratory Function: Patent airway with normal (patient baseline) respiratory exam Cardiovascular Function: Hemodynamically Stable Hydration Status: Adequately Hydrated Nausea & Vomiting: No Nausea or Vomiting Pain: Pain is tolerable per patient Peripheral Nerve Block: Regional nerve block not resolved at time of post operative discharge
[2024-05-01] MEDS: Ketorolac 15 MG/ML VIAL IVP (12:05)
[2024-05-01] MEDS: ACETAMINOPHEN 1,000 MG/100 ML BAG 400 MG IVPB (12:08)
[2024-05-01] MEDS: Lactobacillus Acidophilus CAP 1 CAP PO (13:24)
== END 2024-05-01 15:03 | disposition home or self-care (01) ==
PROVIDERS: PCP Nurse Practitioner Family; Visit Provider Student in an Organized Health Care Education/Training Program
PROC: (CPT 23472; principal; 2024-05-01 07:30)
DX: M75.102 Unspecified rotator cuff tear or rupture of left shoulder, not specified as traumatic (principal); M12.812 Other specific arthropathies, not elsewhere classified, left shoulder; Z96.9 Presence of functional implant, unspecified; E11.9 Type 2 diabetes mellitus without complications; I10 Essential (primary) hypertension; G89.18 Other acute postprocedural pain
CPT/HCPCS: 20680; 23472; C1713; 36410; 64415; 76942; 73030; 87070; 87075; 87205; J0131; J0665; J0666; J0690; J1100; J1805; J1885; J2405; J2704; J3370

== ENCOUNTER 2024-05-13 15:42 | Outpatient (CLI) | payer MEDICARE, SELFPAY ==
--- NOTE | 2024-05-13 10:30 | DI.RAD_ITS ---
Exam(s) XR SHOULDER LT COMPLETE 2+V EXAM: XR SHOULDER LT COMPLETE 2+V CLINICAL HISTORY: F/U LEFT RTSA. TECHNIQUE: 2D digital imaging was performed. Two images were obtained. Grashey and Y views were obt ained. COMPARISON: CR XR SHOULDER LT COMPLETE 2+V from 05/01/2024 FINDINGS: BONES: There are stable post operative changes of a left reverse total shoulder arthroplasty present. No fracture or dislocation. JOINTS: The orthopedic hardware is in good position. No evidence of hardware loosening. SOFT TISSUE: Normal. IMPRESSION: Stable left reverse total shoulder arthroplasty. DATA REPOSITORY: RADIATION DOSE DELIVERED:
== END 2024-05-13 15:43 | disposition home or self-care (01) ==
LOC: DIORS 15:42
PROVIDERS: PCP Nurse Practitioner Family; Referring Provider Nurse Practitioner Family; Visit Provider Student in an Organized Health Care Education/Training Program
DX: M75.102 Unspecified rotator cuff tear or rupture of left shoulder, not specified as traumatic (principal); M12.812 Other specific arthropathies, not elsewhere classified, left shoulder; Z47.1 Aftercare following joint replacement surgery; Z96.612 Presence of left artificial shoulder joint; R58 Hemorrhage, not elsewhere classified
CPT/HCPCS: 99024; 73030

== ENCOUNTER → 2024-06-24 10:25 | Outpatient (BNVA) | payer MEDICARE, SELFPAY | PROVIDERS: PCP Nurse Practitioner Family; Referring Provider Nurse Practitioner Family; Visit Provider Student in an Organized Health Care Education/Training Program | DX: Z47.1 Aftercare following joint replacement surgery (principal); Z96.612 Presence of left artificial shoulder joint | CPT/HCPCS: 99024 ==

== ENCOUNTER → 2024-08-06 14:54 | Outpatient (BNVA) | payer MEDICARE, SELFPAY | PROVIDERS: PCP Nurse Practitioner Family; Referring Provider Nurse Practitioner Family | DX: M17.11 Unilateral primary osteoarthritis, right knee (principal) | CPT/HCPCS: 20610; J1010 ==

== ENCOUNTER 2024-08-26 10:32 | Outpatient (CLI) | payer MEDICARE, SELFPAY ==
--- NOTE | 2024-08-26 09:00 | DI.RAD_ITS ---
Exam(s) XR SHOULDER LT COMPLETE 2+V EXAM: XR SHOULDER LT COMPLETE 2+V CLINICAL HISTORY: F/U LEFT RTSA. TECHNIQUE: 2D digital imaging was performed. Two images were obtained. Grashey and Y views were obt ained. COMPARISON: CT CT UPPER EXTREMITY LT WO from 03/09/2024 CR XR SHOULDER LT COMPLETE 2+V from 05/01/2024 CR XR SHOULDER LT COMPLETE 2+V from 05/13/2024 FINDINGS: BONES: There are stable post operative changes of a left reverse total shoulder arthroplasty present. There is a triangular density seen inferior to the glenoid on the current examination not present o n the prior examination. JOINTS: The orthopedic hardware is in good position. No evidence of hardware loosening. SOFT TISSUE: Normal. IMPRESSION: 1. Stable left reversed total shoulder arthroplasty. 2. Triangular density seen inferior to the glenoid not present on the prior examination. A small fra cture cannot be excluded. DATA REPOSITORY: RADIATION DOSE DELIVERED:
== END 2024-08-26 10:33 | disposition home or self-care (01) ==
LOC: DIORS 10:32
PROVIDERS: PCP Nurse Practitioner Family; Referring Provider Nurse Practitioner Family; Visit Provider Student in an Organized Health Care Education/Training Program
DX: M75.102 Unspecified rotator cuff tear or rupture of left shoulder, not specified as traumatic (principal); M12.812 Other specific arthropathies, not elsewhere classified, left shoulder; M77.11 Lateral epicondylitis, right elbow; Z47.1 Aftercare following joint replacement surgery; Z96.612 Presence of left artificial shoulder joint
CPT/HCPCS: 99214; 73030

== ENCOUNTER 2024-10-28 10:05 | Outpatient (CLI) | payer MEDICARE, SELFPAY ==
--- NOTE | 2024-10-28 08:45 | DI.RAD_ITS ---
Exam(s) XR SHOULDER RT COMPLETE 2+V EXAM: XR SHOULDER RT COMPLETE 2+V CLINICAL HISTORY: F/U RIGHT RTSA. TECHNIQUE: 2D digital imaging was performed. Four images were obtained. Grashey, Y and axillary views were obtained. COMPARISON: CR XR SHOULDER RT COMPLETE 2+V from 02/26/2024 FINDINGS: BONES: There are stable post operative changes of a right reverse total shoulder arthroplasty present. No fracture or dislocation. JOINTS: The orthopedic hardware is in good position. No evidence of hardware loosening. SOFT TISSUE: There again seen well corticated osseous densities inferior to the glenohumeral joint and adjacent to the acromion which are chronic. IMPRESSION: Stable right reversed total shoulder arthroplasty. DATA REPOSITORY: RADIATION DOSE DELIVERED:
== END 2024-10-28 10:06 | disposition home or self-care (01) ==
LOC: DIORS 10:06
PROVIDERS: PCP Nurse Practitioner Family; Visit Provider Student in an Organized Health Care Education/Training Program
DX: Z47.89 Encounter for other orthopedic aftercare (principal); M12.811 Other specific arthropathies, not elsewhere classified, right shoulder; M75.102 Unspecified rotator cuff tear or rupture of left shoulder, not specified as traumatic; M12.812 Other specific arthropathies, not elsewhere classified, left shoulder
CPT/HCPCS: 99212; 73030

== ENCOUNTER 2025-02-04 14:58 | Outpatient (CLI) | payer MEDICARE, SELFPAY ==
--- NOTE | 2025-02-04 09:00 | DI.RAD_ITS ---
Exam(s) XR KNEE RT 2V AP,LAT EXAM: XR KNEE RT 2V AP,LAT CLINICAL HISTORY: right knee pain. TECHNIQUE: 2D digital imaging was performed of the right knee. Two views obtained. AP and lateral views were obtained. COMPARISON: CR XR STANDING ALIGNMENT from 11/29/2022 CR XR KNEE RT 1V from 11/29/2022 FINDINGS: BONES: No acute fracture is present. No bony destructive lesion is seen. There is an enthesophyte at the superior patella. JOINTS: There is marked narrowing of the patellofemoral and medial femoral tibial joint. There osteophytes in all 3 joint compartments. Chondrocalcinosis is seen in the lateral femoral tibial joint. No joint effusion is seen. SOFT TISSUE: Atherosclerotic calcification is present. IMPRESSION: Marked osteoarthritis of the right knee. DATA REPOSITORY: RADIATION DOSE DELIVERED:
== END 2025-02-04 14:59 | disposition home or self-care (01) ==
LOC: DIORS 14:58
PROVIDERS: PCP Nurse Practitioner Family; Referring Provider Nurse Practitioner Family; Visit Provider Student in an Organized Health Care Education/Training Program
DX: M17.11 Unilateral primary osteoarthritis, right knee (principal)
CPT/HCPCS: 99214; 73560

== ENCOUNTER 2025-03-05 00:17 | Outpatient (CLI) | payer MEDICARE, SELFPAY ==
[2025-03-05 12:25] LABS: ALT 33 U/L (10-49); AST 31 U/L (<34); Albumin 4.5 g/dL (3.4-5.0); Alkaline Phosphatase 57 U/L (46-116); Anion Gap 10.5 mmol/L (3-11); BUN 15 mg/dL (9-23); Bilirubin, Total 0.50 mg/dL (0.2-1.2); CO2 25.5 mmol/L (20.0-31.0); Calcium 9.7 mg/dL (8.3-10.6); Chloride 107 mmol/L (98-107); Glucose 84 mg/dL (74-106); Potassium 4.5 mmol/L (3.5-5.1); Sodium 143 mmol/L (136-145); Total Protein 7.2 g/dL (5.7-8.2)
== END 2025-03-05 00:18 | disposition home or self-care (01) ==
LOC: LOS 00:17
PROVIDERS: PCP Nurse Practitioner Family; Visit Provider Nurse Practitioner Family
DX: Z00.00 Encounter for general adult medical examination without abnormal findings (principal)
CPT/HCPCS: 36415; 80053

== ENCOUNTER 2025-03-08 09:09 | Outpatient (CLI) | payer MEDICARE, SELFPAY ==
--- NOTE | 2025-03-08 09:00 | RT.EKG_ITS ---
APPROVED REPORT Exam: Resting ECG Reason for Exam: pre op Patient Location: O HR:79 bpm ECG Measurements Heart Rate 79 AXIS IN 134 P -24 QRSd 87 QRS -36 QT 486 T [id number] QTc 558 Conclusion Sinus rhythm...normal P axis, V-rate 50- 99 Inferior infarct, old...Q >35mS, II III aVF Baseline wander in lead(s) V3
== END 2025-03-08 09:10 | disposition home or self-care (01) ==
LOC: DI.CM 09:12
PROVIDERS: PCP Nurse Practitioner Family; Visit Provider Nurse Practitioner Family
DX: Z01.818 Encounter for other preprocedural examination (principal)
CPT/HCPCS: 93010

== ENCOUNTER → 2025-03-30 00:20 | Outpatient (CLI) | payer MEDICARE, SELFPAY ==
--- NOTE | 2025-03-30 06:15 | DI.US_ITS ---
APPROVED REPORT EXAM: Comprehensive 2D, Doppler, and color-flow Echocardiogram Patient Location: Out-Patient [employer] Engineer: Oliva Navarrete RT (R) (CT) RD Rhythm: NSR Indications: Inferior infarct, old seen on EKG, PREOP, ABNL EKG Other Information Study Quality: Fair Conclusion Moderate concentric left ventricular hypertrophy. EF is 55 to 60%. There is an inferobasal wall motion abnormality Normal right ventricular size and function Both atria are normal in size There is no significant valvular disease Wall motion Left Ventricle The left ventricle is normal size. The left ventricular systolic function is normal. The left ventricular ejection fraction is within the normal range. Moderate concentric left ventricular hypertrophy without evidence of LVOT obstruction. The inferior base and posterolateral base to mid are hypokinetic. The remaining fernandez are normokinetic. Grade I diastolic dysfunction. Normal finding for age LVEF is 55-60%. Right Ventricle The right ventricle is normal size. The right ventricular systolic function is normal. There is normal right ventricular wall thickness. Atria The left atrium size is normal. The right atrium size is normal. Aortic Valve Aortic valve is trileaflet. Mild aortic valve sclerosis. There is no aortic valvular stenosis. No aortic regurgitation is present. Mitral Valve The mitral valve is normal in structure. No evidence of mitral valve stenosis. Trace mitral regurgitation. Tricuspid Valve The tricuspid valve is normal in structure. There is no tricuspid valve stenosis. Trace tricuspid regurgitation. Pulmonic Valve The pulmonary valve is normal in structure. Trace pulmonic regurgitation. Great Vessels The aortic root is normal in size. The pulmonary artery is normal. Ascending aorta is normal in caliber. Due to poor image quality, the IVC could not be assessed. Pericardium There is no pericardial effusion. 2D Dimensions IVSD d PLAX 1.84 cm M: 0.6-1.2 Ao Root d 3.25 cm M: 3.1 - 3.7 LVPW d PLAX 0.86 cm M: 0.6 - 1.2 Ao Asc Diam d 3.64 cm LVID d PLAX 4.04 cm M: 4.2 - 5.8 Prox Ao Arch 3.5 cm LVDs 3.02 cm M: 2.5 - 4.0 LV EF Teichholz 50.6 % FS 25.38 % LV EDV (Teich) 71.8 mL LV ESV (Teich) 35.5 mL M-Mode TAPSE 1.98 cm (M/F) >1.7 Auto EF LV EDV A4C LV EDV A2C LV EDV BP 100.6 mL LV ESV A4C LV ESV A2C LV ESV BP 56.5 mL LVEF(%) A4C LVEF(%) A2C LVEF(%) BP 43.9 % LV SV A4C LV SV A2C LV SV BP 44.1 ml LV CO A4C LV CO A2C LV CO BP 3.4 L/min LV Volumes - Method of Disks (Eastman's) Single Plane 2D LV Volumes Biplane 2D LV Volumes LV EDV A4C 83.0 mL LV EDV BP 74.11 mL LV ESV A4C 23.4 mL LV ESV BP 22.5 mL LVEF(%) A4C 71.7 % LVEF(%) BP 69.60 % LV EDV A2C 63.2 mL LV EDV BP Index 33.99 mL/m2 M: 34 - 74 LV ESV A2C 22.7 mL SV BP LVEF(%) A2C 64.1 % SV Index LV Strain Long Pk Overal Avg (s) 14.08 LA Volume LA Length A4C 5.8 cm LA Length A2C 6.4 cm LA Area A4C s 16.90 cm2 LA Area A2C s 19.71 cm2 LA Vol A4C A-L 41.73 mL LA Vol A2C A-L 51.91 mL LA Vol Biplane A-L 48.7 mL LA Vol/BSA A4C A-L LA Vol/BSA A2C A-L LA Vol/BSA BP A-L 22.4 mL/m2 LA Vol A4C MOD 37.9 mL LA Vol A2C MOD 48.7 mL LA Vol BP MOD 44.8 mL LV Diastology MV E' medial 0.062 (>0.07 m/s) MV E Vmax 0.62 (0.4-1.3 m/s) MV E/E' MED 9.90 (<14) MV A Vmax 0.50 (0.4-1.3 m/s) MV E' lateral 0.121 (>0.1 m/s) E/A Ratio 1.15 MV E/E' LAT 5.10 (<14) MV E' Average 0.091 m/s MV E/E'(average) 6.73 Aortic Valve AoV Vmax 1.40 m/s LVOT Vmax 0.89 m/s AoV Peak Grad 7.8 mmHg LVOT Peak Grad 3.1 mmHg AoV Area (Vmax) 2.58 cm2 LVOT VTI 0.163 m AoV VTI 0.223 m LVOT Mean Grad 1.7 mmHg AoV Mean [place]. 1.04 m/s LVOT SV 66.33 mL AoV Mean Grad 4.9 mmHg LVOT Diam s 2.25 cm AoV Area (VTI) 2.98 cm2 AV Regurg Peak Gr. 7.81 mmHg Mitral Valve MV DT 192 (160-240 msec) Pulmonary Valve RVOT Vmax 0.85 m/s RVOT Peak Gr. 2.9 mmHg RVOT VTI 0.154 m RVOT Mean Gr. 1.4 mmHg Tricuspid Valve TV S' 0.13 m/s
== END ==
LOC: DI 00:20
PROVIDERS: PCP Nurse Practitioner Family; Visit Provider Nurse Practitioner Family
DX: R94.31 Abnormal electrocardiogram [ECG] [EKG] (principal); I51.7 Cardiomegaly
CPT/HCPCS: 93306

== ENCOUNTER → 2025-04-01 00:10 | Outpatient (CLI) | payer MEDICARE, SELFPAY ==
--- NOTE | 2025-04-01 09:00 | DI.NM_ITS ---
APPROVED REPORT Exam: Pharmacologic Patient Location: Out-Patient Room/Bed: Stress Nurse: Kaila Lyles RN Ordering Provider:JULEE LECHUGA, Contact Number: [phone] BMI: 35.57 Baseline Rhythm: Sinus Rhythm. Comment: Rare PAC's; Rare PVC's; Baseline T wave inversion in leads II, III, aVF, V3-V6. Indications: Inferior Infarct, Old, Seen on EKG; Abnormal EKG. Medical History Medical History: Diabetes Mellitus Type 2; GERD; HTN. Cardiac Medications: Amlodipine; Atorvastatin; Insulin Glargine; Lisinopril; Metformin; Semaglutide. Allergies: Latex; Morphine. Cardiac Risk Factors: Diabetes Mellitus Type 2; HTN; Obesity. Previous Cardiac Procedures: None. Pretest Chest Pain Characteristics: None. Exercise History: Sedentary. Physical Disabilities: Right knee pain; pt. is scheduled to have a RTKA on 04/06/25. Lung Sounds: Clear bilaterally throughout, anterior and posterior. Heart Sounds: S1 and S2 auscultated. Stress Test Details Test: Pharmacologic stress was paired with low level exercise. Reason for pharmacologic stress test: physical limitation. Nuclear Acquisition: Rest Tc-99m/Stress Tc-99m 1 day Rest Isotope: Tc-99m Sestamibi. Dose: 12.0 Date: 04/01/2025 Injection Time: 1110 Stress Isotope: Tc-99m Sestamibi. Dose: 34.5 Date: 04/01/2025 Injection Time: 1330 HR Resting HR Supine: 71 bpm Max Heart Rate (APMHR): 147 bpm Resting HR Standin bpm Target HR (85% APMHR): 125 bpm Max HR Achieved: 107 bpm % of APMHR: 73 Recovery HR: 81 bpm HR response to stress: Normal HR response to stress. BP Resting BP Supine: 146/88 mmHg Resting BP Standin/84 mmHg Max BP: 166/82 mmHg Recovery BP: 150/80 mmHg BP response to stress: Normal blood pressure response to stress. ECG Resting ECG: Sinus Rhythm. Ectopy: Rare PAC's; Rare PVC's. Comment: Baseline T wave inversion in leads II, III, aVF, V3-V6. Stress ECG: Sinus Tachycardia. ST Change: Nondiagnostic low heart rate, Nondiagnostic resting ST abnormalities. Arrhythmia: Rare PAC's; Rare PVC's. Comment: Baseline T wave inversion in leads II, III, aVF, V3-V6. Recovery ECG: Sinus Rhythm. Recovery ST Change: Nondiagnostic low heart rate, Nondiagnostic resting ST abnormalities. Recovery Arrhythmia: Rare PAC's; Rare PVC's. Comment: Baseline T wave inversion in leads II, III, aVF, V3-V6. Clinical Stress Symptoms: None. Angina Score: None Rate Pressure Product: [id number] Stress ECG Conclusion 1. Resting electrocardiogram showed diffuse nondiagnostic ST-T abnormalities 2. Patient underwent testing using a combination of low-level exercise. With pharmacologic stress with regadenoson 3. Peak heart rate achieved was 76% of maximal predicted for age 4. The electrocardiographic portion of the test was nondiagnostic 5. See MPI report Critical Notification Critical Value: Yes Physician Notified Date: 04/01/2025 Time: 1321 Physician Name: Lita Jin MD Response Time: 3 minutes Stress Test Summary STAGE HR BP SpO2 Symptoms NOTES Supine 71 146/88 95 Standing 78 144/84 96 1 min post Lexiscan injection 93 160/88 96 3 min post Lexiscan injection 92 166/82 97 6 min post Lexiscan injection 81 150/80 95 Pt. performed a NM MPI stress test using the walking lexiscan protocol. Walking lexiscan protocol was used due to pt.'s right knee pain; pt. is scheduled to have a RTKA on 04/06/25. Pt. was noted to have baseline T wave inversion in leads II, III, aVF, V3-V6. Dr. Jin was notified and informed nursing staff that it was safe to proceed with the stress test. Pt. was asymptomatic throughout the stress test. Pt. was conversing pleasantly with nursing staff upon leaving the Stress Lab. Pt. left ambulatory in no apparent distress. MPI Conclusion Myocardial perfusion is notable for the absence of ischemia. There is a fixed inferobasal defect consistent with prior infarction Ejection fraction is within the range of normal. There is an inferobasal wall motion abnormality
[2025-04-01] MEDS: Regadenoson 0.4 MG/5 ML SYR IVP (13:30)
== END ==
LOC: DI 00:10
PROVIDERS: PCP Nurse Practitioner Family; Visit Provider Nurse Practitioner Family
DX: R94.31 Abnormal electrocardiogram [ECG] [EKG] (principal); I21.19 ST elevation (STEMI) myocardial infarction involving other coronary artery of inferior wall
CPT/HCPCS: 78452; 93016; 93018; 99024; 77073; 93017; J2785

== ENCOUNTER 2025-04-01 10:20 | Outpatient (REF) | payer MEDICARE, SELFPAY ==
[2025-04-01 12:00] LABS: Anion Gap 11.9 mmol/L (3-11); BUN 17 mg/dL (9-23); CO2 20.1 mmol/L (20.0-31.0); Calcium 9.1 mg/dL (8.3-10.6); Chloride 109 mmol/L (98-107); Glucose 184 mg/dL (74-106); Potassium 4.6 mmol/L (3.5-5.1); Sodium 141 mmol/L (136-145)
[2025-04-01 13:13] LABS: RBC 4.51 10^6/uL (4.36-5.78); WBC 7.83 10^3/uL (4.4-10.8)
[2025-04-01 13:14] LABS: HCT 43.2 % (40.0-50.0); HGB 14.3 g/dL (13.5-17.5); MCH 31.7 pg (27.0-33.0); MCHC 33.1 % (32.0-36.0); MCV 96 fL (80-95); MPV 11.4 fL (8.0-11.0); Platelet Count 281 10^3/uL (130-400); RDW 12.1 % (11.8-14.1); RDW-SD 42.4 fL
== END 2025-04-01 10:21 | disposition home or self-care (01) ==
LOC: LBN 10:20
PROVIDERS: PCP Nurse Practitioner Family; Visit Provider Student in an Organized Health Care Education/Training Program
DX: M17.11 Unilateral primary osteoarthritis, right knee (principal); Z01.818 Encounter for other preprocedural examination; E11.65 Type 2 diabetes mellitus with hyperglycemia
CPT/HCPCS: 80048; 85027; 82985

== ENCOUNTER 2025-04-01 11:21 | Outpatient (CLI) | payer MEDICARE, SELFPAY ==
--- NOTE | 2025-04-01 09:00 | DI.RAD_ITS ---
Exam(s) XR STANDING ALIGNMENT EXAM: XR STANDING ALIGNMENT CLINICAL HISTORY: PRE OP R TKA. TECHNIQUE: 2D digital imaging was performed. Four images were obtained. COMPARISON: CR XR KNEE RT 1V from 11/29/2022 CR XR STANDING ALIGNMENT from 11/29/2022 CR XR KNEE RT 2V AP,LAT from 02/04/2025 FINDINGS: BONES: In the right hip, there is asymmetric joint space narrowing and osteophytes consistent with osteoarthritis. There is asymmetric narrowing of the superior joint space in the left hip consistent with osteoarthritis. In the right knee, there is marked narrowing of the medial femoral tibial joint. Osteophytes are seen both medially and laterally. There is chondrocalcinosis in the lateral femoral tibial joint noted. In the left knee, there is mild narrowing of the medial femoral tibial joint. The ankles are well maintained.The left lower extremity is 1 cm longer than the right lower extremit y. SOFT TISSUE: Normal. IMPRESSION: Marked osteoarthritis of the right knee. Mild osteoarthritis of the left knee. DATA REPOSITORY: RADIATION DOSE DELIVERED:
== END 2025-04-01 11:22 | disposition home or self-care (01) ==
LOC: DIORS 11:21
PROVIDERS: PCP Nurse Practitioner Family; Visit Provider Physician Assistant
DX: Z01.818 Encounter for other preprocedural examination (principal); M17.11 Unilateral primary osteoarthritis, right knee; E11.9 Type 2 diabetes mellitus without complications
CPT/HCPCS: 99024; 77073